=== PATIENT | female | born 1970 | race Caucasian/White ===

== ENCOUNTER → 2020-10-01 13:18 | Outpatient (CLI) | payer OTHER, SELFPAY ==
--- NOTE | ~2020-10-01 | MM_ITS ---
EXAMINATION: MM screening kamila BI w amla HISTORY: Screening TECHNIQUE: Craniocaudal and mediolateral oblique 3-D tomosynthesis images were obtained and synthetic 2-D images were generated. CAD analysis was submitted and interpreted. COMPARISON: Comparison to multiple prior studies sequentially, with oldest reviewed study dated 12/2012. BREAST PARENCHYMAL COMPOSITION: There are scattered areas of fibroglandular density. FINDINGS: Right breast is stable without evidence for malignancy. No significant change to benign-art earing right breast mass in the upper outer quadrant. There are subtle developing asymmetries in the subareolar location of the left breast. IMPRESSION: 1. Developing left breast subareolar densities. 2. Additional mammographic views and possible breast ultrasound are recommended. BI-RADS Category 0: Incomplete: Needs additional imaging evaluation. Reviewed, dictated and finalized at location A. GRADER IMPRESSION: 1. Developing left breast subareolar densities. 2. Additional mammographic views and possible breast ultrasound are recommended . BI-RADS Category 0: Incomplete: Needs additional imaging evaluation.
--- NOTE | ~2020-10-01 | DEXA_ITS ---
Bone Density Report Name: Jumana Campoverde Age: 50 Sex: Female Ethnicity: White Date of : 1970 Indication: postmenopausal; screening for osteoporosis; height loss; asthma or emphysema; Referring Provider: Ok Lujan Study: Bone densitometry was performed. Exam Date: October 01, 2020 Accession number: [id number] Bone Density: Region BMD T-score Z-score Classification AP Spine (L1-L4) 0.961 -0.8 0.1 Normal Femoral Neck (Left) 0.653 -1.8 -0.9 Osteopenia Total Hip (Left) 0.823 -1.0 -0.4 Normal Femoral Neck (Right) 0.710 -1.3 -0.4 Osteopenia Total Hip (Right) 0.831 -0.9 -0.4 Normal Total Hip Mean 0.827 -1.0 -0.4 Normal World Health Organization criteria for BMD impression classify patients as: Normal (T-score at or above -1.0), Osteopenia (T-score between -1.0 and -2.5), or Osteoporosis (T-score at or below -2.5). 10-year Fracture Risk(1): Major Osteoporotic Fracture 5.7% Hip Fracture 0.6% Reported Risk Factors: [place] (), Neck BMD=0.653, BMI=27.4 (1) FRAX(R) Version 3.08. Fracture probability calculated for an untreated patient. Fracture probability may be lower if the patient has received treatment. Clinical Information Provided by Patient: Has the following medical conditions: Asthma or Emphysema Patient maximum height was 66 Menopause Age: 49 Drinks caffeinated beverages Onset of menses at age 13 Number of children 4 Impression: The patient has low bone mass, based on the Left Femoral Neck T-score. The patient has an estimated ten-year risk of hip fracture of 0.6% and an estimated ten-year risk of major fracture of 5.7%, based on the WHO FRAX algorithm. Discussion: BONE DENSITY IS LOW AT ONE OR MORE SKELETAL SITES. This patient's lowest T-score is low at one or more skeletal sites. It meets the World Health Organization's (WHO) criteria for ?low bone mass? (T-score between -1.0 and -2.5). The patient's 10-year risk of fracture as calculated by FRAX is less than the threshold where pharmacological therapy is recommended by the National Osteoporosis Foundation (NOF). However, all treatment decisions require clinical judgment and consideration of individual patient factors, including patient preferences, comorbidities, previous drug use, risk factors not captured in the FRAX model (e.g., frailty, falls, vitamin D deficiency, increased bone turnover, interval significant decline in bone density) and possible under or overestimation of fracture risk by FRAX. The patient should follow a healthful lifestyle (good nutrition with adequate calcium and vitamin D, and appropriate weight-bearing exercise). Follow-Up: Consider repeating this study in 2 to 3 years to reassess this patient's status, or sooner if there is some new clinical indication. Reported by: RON on 10/01/2020 1:45:0
== END ==
PROVIDERS: PCP Family Medicine; Visit Provider Family Medicine
DX: Z12.31 Encounter for screening mammogram for malignant neoplasm of breast (principal); Z78.0 Asymptomatic menopausal state; R92.8 Other abnormal and inconclusive findings on diagnostic imaging of breast; M85.89 Other specified disorders of bone density and structure, multiple sites
CPT/HCPCS: 77063; 77067; 77080

== ENCOUNTER → 2020-10-22 14:14 | Outpatient (CLI) | payer OTHER, SELFPAY ==
--- NOTE | ~2020-10-22 | MMUS_ITS ---
EXAMINATION: MM diagnostic mammo unilat LT, US breast LT complete HISTORY: Developing left breast subareolar densities reported on 10/01/2020 screening mammogram TECHNIQUE: Additional 3-D tomosynthesis images of the left breast were performed and synthetic 2-D im ages were generated. CAD analysis was submitted and interpreted. High resolution complete left breast ultrasound was performed. COMPARISON: 10/18/2020, 05/18/2019, 04/28/2018 bilateral digital screening mammogram examinations FINDINGS: MAMMOGRAPHIC FINDINGS: Mildly nodular appearing fibroglandular stroma is noted. Small mass is not excluded. No malignant calcification, architectural distortion, skin thickening or retraction is evident. ULTRASOUND: 12:00 subareolar area: 3 x 5 mm sonolucency with through transmission, consistent with cyst. 2:00 3 cm from nipple: 2.2 x 3.5 x 4.4 mm sonolucency with through transmission, consistent with cyst 2:00 4 cm from nipple: 2.4 mm sonolucency 3:00 6 cm from nipple: 2 x 3 x 4 mm hypoechoic lesion with tri-*configuration, without internal vascu larity or posterior shadowing; six-month follow-up ultrasound imaging is recommended 4:00 5 cm from nipple: 2.5 x 4.6 mm sonolucency with through transmission posterior enhancement consi stent with simple cyst. 4:00 5 cm from nipple: 2.7 x 4.4 mm hypoechoic lesion with mildly irregular margins; no internal vasc ularity or posterior shadowing. 6 month follow-up ultrasound examination is recommended. 11:00 subareolar area: 2.5 x 4.6 x 7 Prominent subareolar duct is noted. Mm sonolucency with through transmission, consistent with cyst. IMPRESSION: 1. Probably benign findings 2. 6 month follow-up left breast ultrasound examination is recommended. BI-RADS category 3, probably benign findings. Reviewed, dictated and finalized at location A. [facility] [employer] IMPRESSION: 1. Probably benign findings 2. 6 month follow-up left breast ultrasound examination is recommended. BI-RADS category 3, probably benign findings.
== END ==
PROVIDERS: PCP Family Medicine; Visit Provider Family Medicine
DX: N63.42 Unspecified lump in left breast, subareolar (principal); N63.21 Unspecified lump in the left breast, upper outer quadrant; N63.23 Unspecified lump in the left breast, lower outer quadrant
CPT/HCPCS: 76641; 77065

== ENCOUNTER → 2021-04-26 08:36 | Outpatient (CLI) | payer OTHER, SELFPAY ==
--- NOTE | ~2021-04-26 | XR_ITS ---
XR hand RT min 3V 04/26/2021 08:53 INDICATION: Right hand pain PROCEDURE: 3 views right hand COMPARISON: 06/21/2008 FINDINGS: Fracture, dislocation or subluxation is not identified. The soft tissues appear within norm al limits. No foreign bodies are identified. IMPRESSION: 1: NO ACUTE BONE OR JOINT ABNORMALITY IDENTIFIED. Reviewed, dictated and finalized at location A.
== END ==
PROVIDERS: Visit Provider Physician Assistant
DX: S69.90XA Unspecified injury of unspecified wrist, hand and finger(s), initial encounter (principal)
CPT/HCPCS: 73130

== ENCOUNTER 2021-05-24 09:09 | Outpatient (CLI) | payer OTHER, SELFPAY ==
[2021-05-24 09:41] LABS: Basophils Percent Auto 0.7 % (0.2-1.2); Eosinophils Absolute Auto 0.2 K/mm3 (0-0.3); Eosinophils Percent Auto 3.8 % (0-4.4); Hematocrit 44.6 % (37.0-47.0); Hemoglobin 14.7 g/dL (12.0-15.0); Immature Granulocyte Absolute 0.01 K/mm3 (0.00-0.031); Immature Granulocyte Percent A 0.2 % (0-0.5); Lymphocytes Absolute Auto 1.69 K/mm3 (0.9-3.2); Lymphocytes Percent Auto 30.8 % (18.3-44.2); Mean Platelet Volume 11.1 fl (7.4-10.4); Monocytes Absolute Auto 0.5 K/mm3 (0.1-0.6); Monocytes Percent Auto 8.2 % (2.6-8.5); Neutrophils Absolute Auto 3.1 K/mm3 (1.3-6.7); Neutrophils Percent Auto 56.3 % (45.5-73.1); Platelet Count Result 182 k/mm3 (150-375); Red Blood Count 5.07 M/mm3 (4.2-5.4); Red Cell Distribution Width 13.2 % (11.5-14.5); White Blood Count 5.5 K/mm3 (4.5-10.0)
[2021-05-24 09:51] LABS: Alanine Aminotransferase 18 U/L (4-35); Albumin Level 4.8 g/dL (3.5-5.1); Alkaline Phosphatase 75 U/L (38-126); Anion Gap 9 mmol/L (8-16); Aspartate Amino Transferase 26 U/L (14-36); Bilirubin,Total 0.6 mg/dL (0.2-1.3); Blood Urea Nitrogen 16 mg/dL (7-17); Calcium 9.3 mg/dL (8.4-10.2); Carbon Dioxide 30 mmol/L (22-30); Chloride 103 mmol/L (98-107); Cholesterol 191 mg/dL (0-200); Estimated Glomerular Filt Rate > 60; Glucose 93 mg/dL (65-105); HDL Direct 51 mg/dL; Sodium 142 mmol/L (137-145); Triglycerides 103 mg/dL (<150)
[2021-05-24 10:02] LABS: LDL Cholesterol Direct 111 mg/dL
[2021-05-24 11:00] LABS: Vitamin D 25 Hydroxy 41.8 ng/mL
== END 2021-05-24 09:10 | disposition home or self-care (01) ==
PROVIDERS: PCP Family Medicine; Visit Provider Physician Assistant
DX: M85.80 Other specified disorders of bone density and structure, unspecified site (principal); I10 Essential (primary) hypertension; Z79.899 Other long term (current) drug therapy
CPT/HCPCS: 36415; 80053; 80061; 82306; 84443; 85025

== ENCOUNTER → 2021-09-19 14:45 | Outpatient (CLI) | payer OTHER, SELFPAY ==
--- NOTE | ~2021-09-19 | US_ITS ---
US breast LT complete DATE: 09/19/2021 15:08 INDICATION: Follow-up of probably benign sonographic lesions, 10/22/2020 complete left breast ultraso und examination TECHNIQUE: High-resolution ultrasound imaging and color flow imaging of complete left breast, includi ng all 4 quadrants and subareolar area COMPARISON: 10/22/2020 complete left breast ultrasound 10/18/2020 diagnostic left mammogram 10/01/2020 bilateral digital screening mammogram FINDINGS: The following lesions without suspicious shadowing or internal vascularity or noted: 12:00 subareolar: 4.6 x 3.2 x 4.9 mm sonolucency 2:00 3 cm from nipple: 3.4 x 2.4 x 4.3 mm hypoechoic lesion 3:00 6 cm from nipple: 4.5 x 2.9 x 2.8 mm hypoechoic lesion 4:00 5 cm from nipple: 3.2 x 2.7 x 3.7 mm sonolucency 4:00 5 cm from nipple: 1.8 x 2 x 2.8 mm hypoechoic lesion 6:00 4 cm from nipple: 3.6 x 2 x 3.1 mm sonolucency with through transmission posterior enhancement 6:00 4 cm from nipple: 3 x 2.7 x 4 mm sonolucency 11:00 subareolar: 3 x 2.4 x 2.8 mm sonolucency 12:00 subareolar: 2.7 x 4 x 5 mm sonolucency No significant new or developing mass is noted compared to 10/18/2020. IMPRESSION: BI-RADS Category 2: Benign Recommendation: Routine mammographic screening Reviewed, dictated and finalized at Location A. Reviewed, dictated and finalized at location A.
== END ==
PROVIDERS: PCP Family Medicine; Visit Provider Family Medicine
DX: N63.25 Unspecified lump in the left breast, overlapping quadrants (principal); N63.42 Unspecified lump in left breast, subareolar
CPT/HCPCS: 76641

== ENCOUNTER 2022-04-25 08:15 | Outpatient (CLI) | payer OTHER, SELFPAY ==
[2022-04-25 08:48] LABS: Basophils Absolute Auto 0.1 K/mm3 (0.0-0.1); Basophils Percent Auto 0.8 % (0.2-1.2); Eosinophils Absolute Auto 0.2 K/mm3 (0-0.3); Eosinophils Percent Auto 2.8 % (0-4.4); Hematocrit 44.3 % (37.0-47.0); Hemoglobin 14.4 g/dL (12.0-15.0); Immature Granulocyte Absolute 0.01 K/mm3 (0.00-0.031); Immature Granulocyte Percent A 0.2 % (0-0.5); Lymphocytes Percent Auto 36.3 % (18.3-44.2); Mean Corpuscular HGB Conc 32.5 g/dl (32-36); Mean Corpuscular Hemoglobin 29.1 pg (26-34); Mean Corpuscular Volume 89.5 fl (80-100); Mean Platelet Volume 11.2 fl (7.4-10.4); Monocytes Absolute Auto 0.6 K/mm3 (0.1-0.6); Monocytes Percent Auto 10.1 % (2.6-8.5); Neutrophils Percent Auto 49.8 % (45.5-73.1); Platelet Count Result 181 k/mm3 (150-375); Red Blood Count 4.95 M/mm3 (4.2-5.4); Red Cell Distribution Width 13.4 % (11.5-14.5); White Blood Count 6.1 K/mm3 (4.5-10.0)
[2022-04-25 08:58] LABS: Alanine Aminotransferase 25 U/L (6-35); Albumin Level 4.8 g/dL (3.5-5.1); Alkaline Phosphatase 83 U/L (38-126); Anion Gap 3 mmol/L (8-16); Aspartate Amino Transferase 30 U/L (14-36); Bilirubin,Total 0.6 mg/dL (0.2-1.3); Blood Urea Nitrogen 17 mg/dL (7-17); Calcium 9.2 mg/dL (8.4-10.2); Carbon Dioxide 34 mmol/L (22-30); Chloride 103 mmol/L (98-107); Cholesterol 219 mg/dL (0-200); Estimated Glomerular Filt Rate > 60; Glucose 95 mg/dL (65-110); HDL Direct 44 mg/dL; Potassium 3.8 mmol/L (3.4-5.0); Sodium 140 mmol/L (137-145); Triglycerides 151 mg/dL (<150)
[2022-04-25 09:08] LABS: LDL Cholesterol Direct 132 mg/dL
[2022-04-25 09:37] LABS: Free T4 Free Thyroxine 0.96 ng/mL (0.78-2.19); Vitamin D 25 Hydroxy 40.7 ng/mL
== END 2022-04-25 08:16 | disposition home or self-care (01) ==
LOC: ANHLAB 08:17
PROVIDERS: PCP Family Medicine; Visit Provider Family Medicine
DX: I10 Essential (primary) hypertension (principal); G43.909 Migraine, unspecified, not intractable, without status migrainosus; R53.83 Other fatigue; Z79.899 Other long term (current) drug therapy
CPT/HCPCS: 36415; 80053; 80061; 82306; 84439; 84443; 85025

== ENCOUNTER 2023-04-29 08:33 | Outpatient (CLI) | payer OTHER, SELFPAY ==
--- NOTE | 2023-05-10 13:29 | WPDHOMESLEEP ---
Sleep Study - Home Unattended Date of Study: 04/29/23 Ordering Provider: Dl Hernandez MD Interpreting Provider: Joseline Mcdonnell, DO Home Sleep Study Type: Watch PAT Height: 1.68 m Weight: 77.111 kg Body Mass Index: 27.4 Neck Circumference (inches): 13 [place]: 9 Reason for Sleep Study Snoring, unrefreshing sleep Sleep History The patient is a 52-year-old with asthma, hypertension, GERD, migraines, anxiety, low back pain and seasonal allergies had a sleep study ordered for evaluation of sleep apnea. The patient rarely awakens from sleep short of breath. She denies awakening at night with heartburn, belching or cough. She constantly snores loudly enough that others complain. She occasionally has trouble sleeping when she has a cold. She occasionally wakes up gasping for air throughout the night. She occasionally has breathing problems at night observed by herself or others. She occasionally sweats excessively at night. She denies having heart palpitations or irregular heartbeats during the night. She occasionally falls asleep during the day. She rarely falls asleep while driving. She denies sleep paralysis, cataplexy and hypnagogic / hypnopompic hallucinations. She occasionally has trouble at school or work due to sleepiness. She denies afraid of going to sleep. She rarely has nightmares and rarely remembers her dreams. She denies having thoughts racing through her mind. She occasionally feels sad, depressed and anxious. She occasionally has muscular tension. She occasionally notices parts of her body jerk. She frequently kicks during the night. She denies having crawling and aching feelings in her legs. She rarely has leg pain during the night. She denies grinding her teeth during sleep and denies awakening with morning jaw pain. She is occasionally bothered by pain during the day but never awakened by pain during the night. She frequently wakes up feeling stiff in the morning. She frequently wakes up with sore or achy muscles. She frequently wakes up with pain in the neck, spine or other joints. He goes to bed between 10-11 p.m. on both weekdays and weekends. She is able to fall asleep within 15 minutes. She wakes up 1-2 times throughout the night to urinate and was able to fall back asleep in under 5 minutes. She wakes up at 6:30 a.m. on weekdays and between 7:30-8 a.m. on the weekends. She typically gets 7 hours of sleep per night. She will stay in bed for 5 minutes after waking up in the morning. She currently lives with her and 2 children. She does not consume any caffeinated beverages within 2 hours of bedtime. She does not engage in physical exercise before bedtime. She will read before falling asleep. She denies watching television before falling asleep. She denies taking naps in the afternoon or the evening. She consumes 1 caffeinated beverage per day. She denies tobacco, alcohol and recreational drug use. [facility] Surgical History Surgical History History of removal of ovarian cyst Family History Family History Father Family history of thyroid disease, Onset Age: 66 Mother Depression, Onset Age: 64 Family history of seizure disorder Grandparent Hypertension Family history of elevated blood lipids Family history of cardiovascular disease Cerebrovascular accident Family history of malignant neoplasm Social History Social History Smoking status: Never smoker Alcohol intake: never Lack of Transportation: No Lack of Food: Never True Current Housing: I Have Housing Concerned About Future Housing: No Difficulty Paying Gas/Electric Bills: No Difficulty Paying for Meds: No Currently Unemployed: No Education: Master's Degree or Higher Difficulty w/ Childcare or Family Care: No
[2023-05-10 13:45] VITALS: BMI 27.4
== END 2023-05-10 12:22 | disposition home or self-care (01) ==
LOC: ANHCSM 08:34
PROVIDERS: PCP Family Medicine; Visit Provider Family Medicine
DX: G47.9 Sleep disorder, unspecified (principal)
CPT/HCPCS: 95800

== ENCOUNTER 2023-05-14 08:31 | Outpatient (CLI) | payer OTHER, SELFPAY ==
[2023-05-14 09:01] LABS: Basophils Absolute Auto 0.1 K/mm3 (0.0-0.1); Basophils Percent Auto 0.9 % (0.2-1.2); Eosinophils Absolute Auto 0.3 K/mm3 (0-0.3); Eosinophils Percent Auto 3.8 % (0-4.4); Hematocrit 42.2 % (37.0-47.0); Hemoglobin 13.8 g/dL (12.0-15.0); Immature Granulocyte Absolute 0.02 K/mm3 (0.00-0.031); Immature Granulocyte Percent A 0.3 % (0-0.5); Lymphocytes Absolute Auto 2.26 K/mm3 (0.9-3.2); Lymphocytes Percent Auto 34.7 % (18.3-44.2); Mean Corpuscular HGB Conc 32.7 g/dl (32-36); Mean Corpuscular Hemoglobin 29.1 pg (26-34); Mean Platelet Volume 10.5 fl (7.4-10.4); Monocytes Absolute Auto 0.6 K/mm3 (0.1-0.6); Monocytes Percent Auto 9.4 % (2.6-8.5); Neutrophils Absolute Auto 3.3 K/mm3 (1.3-6.7); Neutrophils Percent Auto 50.9 % (45.5-73.1); Platelet Count Result 195 k/mm3 (150-375); Red Blood Count 4.74 M/mm3 (4.2-5.4); Red Cell Distribution Width 13.5 % (11.5-14.5); White Blood Count 6.5 K/mm3 (4.5-10.0)
[2023-05-14 09:12] LABS: Alanine Aminotransferase 27 U/L (6-35); Albumin Level 4.4 g/dL (3.5-5.1); Alkaline Phosphatase 76 U/L (38-126); Anion Gap 7 mmol/L (8-16); Aspartate Amino Transferase 27 U/L (14-36); Bilirubin,Total 0.7 mg/dL (0.2-1.3); Blood Urea Nitrogen 20 mg/dL (7-17); Carbon Dioxide 32 mmol/L (22-30); Chloride 101 mmol/L (98-107); Cholesterol 197 mg/dL (0-200); Estimated Glomerular Filt Rate > 60; Glucose 94 mg/dL (65-110); HDL Direct 49 mg/dL; Magnesium 2.1 mg/dL (1.6-2.3); Sodium 140 mmol/L (137-145); Triglycerides 84 mg/dL (<150)
[2023-05-14 09:23] LABS: LDL Cholesterol Direct 126 mg/dL
== END 2023-05-14 08:32 | disposition home or self-care (01) ==
LOC: ANHLAB 08:33
PROVIDERS: PCP Family Medicine; Visit Provider Physician Assistant
DX: G47.9 Sleep disorder, unspecified (principal); Z79.899 Other long term (current) drug therapy; M85.80 Other specified disorders of bone density and structure, unspecified site; I10 Essential (primary) hypertension
CPT/HCPCS: 36415; 80053; 80061; 82728; 83735; 84443; 85025

== ENCOUNTER 2023-05-31 07:51 | Outpatient (CLI) | payer OTHER, SELFPAY | END 2023-05-31 07:52 | disposition home or self-care (01) | LOC: ANHAUDIO 07:51 | PROVIDERS: PCP Family Medicine; Visit Provider Family Medicine | DX: H90.3 Sensorineural hearing loss, bilateral (principal) | CPT/HCPCS: 92557; 92567 ==

== ENCOUNTER 2023-12-31 00:08 | Day surgery (SDC) | payer OTHER, SELFPAY ==
[2023-12-09 13:29] VITALS: BMI 29.1
--- NOTE | 2023-12-29 11:48 | SUR.PREOP ---
Patient called regarding upcoming procedure. message left on pt's voicemail regarding appointment times.
--- NOTE | 2023-12-30 14:43 | PM.HPGS ---
History of Present Illness History of Present Illness Consent: Risks, benefits, and alternatives have been discussed and questions answered. Patient agrees to proceed with procedure. Chief complaint: neoplasm screening Narrative: Jumana Campoverde is a 53 year old female Who was referred for colon cancer screening. Review of Systems Review of Systems: All systems reviewed & are unremarkable except as noted in HPI and below PMFSH Surgical History Surgical History History of removal of ovarian cyst Family History Family History Father Family history of thyroid disease, Onset Age: 66 Mother Depression, Onset Age: 64 Family history of seizure disorder Grandparent Hypertension Family history of elevated blood lipids Family history of cardiovascular disease Cerebrovascular accident Family history of malignant neoplasm Social History Social History Smoking status: Never smoker Alcohol intake: current Alcohol use details: rare Substance use: never Substance use type: does not use Lack of Transportation: No Lack of Food: Never True Current Housing: I Have Housing Concerned About Future Housing: No Difficulty Paying Gas/Electric Bills: No Difficulty Paying for Meds: No Currently Unemployed: No Education: Master's Degree or Higher Difficulty w/ Childcare or Family Care: No Living arrangements: with family Spiritual care concerns: No Meds Home Medications and Allergies Home Medications Medication Instructions Recorded Confirmed Type calcium polycarbophil 625 mg 1,250 mg PO DAILY 04/30/20 12/31/23 History tablet (FiberCon) fluticasone propionate 50 1 spray intranasal BID 04/30/20 12/31/23 History mcg/actuation nasal spray,suspension (Allergy Relief (fluticasone)) loratadine 10 mg tablet (Claritin) 10 mg PO DAILY 04/30/20 12/31/23 History cholecalciferol (vitamin D3) 50 50 mcg PO DAILY 10/15/20 12/31/23 History mcg (2,000 unit) capsule montelukast 10 mg tablet 10 mg PO DAILY #90 tabs 04/12/23 12/31/23 Rx (Singulair) buspirone 7.5 mg tablet 7.5 mg PO DAILY PRN stress #90 tabs 06/11/23 12/31/23 Rx lisinopril 20 mg tablet See Rx Instructions .Route 07/29/23 12/31/23 Rx .COMPLEX #90 tabs eletriptan 20 mg tablet See Rx Instructions PO .COMPLEX 09/10/23 12/31/23 Rx #27 tabs hydrochlorothiazide 12.5 mg tablet 6.25 mg PO DAILY #90 tabs 10/04/23 12/31/23 Rx gabapentin 100 mg capsule 100 mg PO QHS #90 caps 10/15/23 12/31/23 Rx fluticasone propionate 230 2 puff inhalation Q12H #12 grams 11/15/23 12/31/23 Rx mcg-salmeterol 21 mcg/actuation HFA inhaler (Advair HFA) celecoxib 200 mg capsule (Celebrex) 200 mg PO BID #180 caps 11/24/23 12/31/23 Rx omeprazole 40 mg capsule,delayed 40 mg PO DAILY #90 caps 11/24/23 12/31/23 Rx release Allergies Allergy/AdvReac Type Severity Reaction Status Date / Time animal dander Allergy Unknown Sneezing Verified 12/31/23 09:16 Sulfa (Sulfonamide Allergy Unknown Swelling Verified 12/31/23 09:16 Antibiotics) sulfamethizole Allergy Unknown angioedema Verified 12/31/23 09:16 Exam Resp: Auscultation: clear to auscultation bilaterally Cardio: Rate: regular rate Rhythm: regular rhythm GI: GI Palp: Yes Soft to palpation and No Tenderness to palpation present (GI) Assessment and Plan Assessment and plan (1) Colon cancer screening: Code(s): Z12.11 - Encounter for screening for malignant neoplasm of colon Status: Acute Assessment and Plan: Colonoscopy with possible biopsy or polypectomy or cautery or injection of substances.
[2023-12-31 09:18] VITALS: BP 129/95; PULSE 78; RESP 20; TEMP 36.2; O2SAT 100
[2023-12-31] MEDS: LACTATED RINGERS 1,000 ML 150 ML IV CONT (09:29)
--- NOTE | 2023-12-31 10:17 | WPDANESEPPF ---
Anes - Initial Pre Proc Eval Procedure: Operation Date: 12/31/23 10:30 Proposed Procedures p Screening Colonoscopy - Juliano Emery MD Date/Time: 12/31/23 10:17 Surgeon: Juliano Emery MD Pre Op Diagnosis: neoplasm screening Patient Data Age: 53 Gender: F Height: 1.65 m Weight: 77.1 kg Last Vital Signs Temp 97.2 F L 12/31/23 09:18 Pulse 78 12/31/23 09:18 Resp 20 12/31/23 09:18 BP 129/95 H 12/31/23 09:18 Pulse Ox 100 12/31/23 09:18 O2 Del Method Room Air 12/31/23 09:18 Allergies Allergy/AdvReac Type Severity Reaction Status Date / Time animal dander Allergy Unknown Sneezing Verified 12/31/23 09:16 Sulfa (Sulfonamide Allergy Unknown Swelling Verified 12/31/23 09:16 Antibiotics) sulfamethizole Allergy Unknown angioedema Verified 12/31/23 09:16 Home Medications Medication Instructions Recorded Confirmed Type calcium polycarbophil 625 mg 1,250 mg PO DAILY 04/30/20 12/31/23 History tablet (FiberCon) fluticasone propionate 50 1 spray intranasal BID 04/30/20 12/31/23 History mcg/actuation nasal spray,suspension (Allergy Relief (fluticasone)) loratadine 10 mg tablet (Claritin) 10 mg PO DAILY 04/30/20 12/31/23 History cholecalciferol (vitamin D3) 50 50 mcg PO DAILY 10/15/20 12/31/23 History mcg (2,000 unit) capsule montelukast 10 mg tablet 10 mg PO DAILY #90 tabs 04/12/23 12/31/23 Rx (Singulair) buspirone 7.5 mg tablet 7.5 mg PO DAILY PRN stress #90 tabs 06/11/23 12/31/23 Rx lisinopril 20 mg tablet See Rx Instructions .Route 07/29/23 12/31/23 Rx .COMPLEX #90 tabs eletriptan 20 mg tablet See Rx Instructions PO .COMPLEX 09/10/23 12/31/23 Rx #27 tabs hydrochlorothiazide 12.5 mg tablet 6.25 mg PO DAILY #90 tabs 10/04/23 12/31/23 Rx gabapentin 100 mg capsule 100 mg PO QHS #90 caps 10/15/23 12/31/23 Rx fluticasone propionate 230 2 puff inhalation Q12H #12 grams 11/15/23 12/31/23 Rx mcg-salmeterol 21 mcg/actuation HFA inhaler (Advair HFA) celecoxib 200 mg capsule (Celebrex) 200 mg PO BID #180 caps 11/24/23 12/31/23 Rx omeprazole 40 mg capsule,delayed 40 mg PO DAILY #90 caps 11/24/23 12/31/23 Rx release Patient hx anesthesia problems: none Family hx anesthesia problems: none Results Review: All pre-operative results and documents have been reviewed as part of the pre-operative evaluation. [facility] Surgical History Surgical History History of removal of ovarian cyst Family History Family History Father Family history of thyroid disease, Onset Age: 66 Mother Depression, Onset Age: 64 Family history of seizure disorder Grandparent Hypertension Family history of elevated blood lipids Family history of cardiovascular disease Cerebrovascular accident Family history of malignant neoplasm Social History Social History Smoking status: Never smoker Alcohol intake: current Alcohol use details: rare Substance use: never Substance use type: does not use Lack of Transportation: No Lack of Food: Never True Current Housing: I Have Housing Concerned About Future Housing: No Difficulty Paying Gas/Electric Bills: No Difficulty Paying for Meds: No Currently Unemployed: No Education: Master's Degree or Higher Difficulty w/ Childcare or Family Care: No Living arrangements: with family Spiritual care concerns: No Anes - Eval Final PreProcedure Day of Procedure 12/31/23 10:17 Patient weight: normal Heart: regular rate and rhythm Lungs: clear to auscultation Airway: Mallampati scale class II Neurological: alert and oriented Last oral intake: >/= 8 hours ASA classification: II Emergent: no Anesthetic plan: proceed Anesthesia type and monitoring: general GIVS and standard monitoring Results Review: All pre-operative results and docum
[2023-12-31 10:48] VITALS: BP 125/84; PULSE 76; RESP 18; O2SAT 100
[2023-12-31 10:58] VITALS: BP 133/81; PULSE 68; RESP 20; O2SAT 100
[2023-12-31 11:08] VITALS: BP 129/97; PULSE 70; RESP 20; O2SAT 100
== END 2023-12-31 11:16 | disposition home or self-care (01) ==
PROVIDERS: PCP Family Medicine; Visit Provider Internal Medicine Gastroenterology
PROC: 0DJD8ZZ Inspection of Lower Intestinal Tract, Via Natural or Artificial Opening Endoscopic (ICD-10-PCS; CPT 45378; principal; 2023-12-31 10:30)
DX: Z12.11 Encounter for screening for malignant neoplasm of colon (principal); Z79.51 Long term (current) use of inhaled steroids
CPT/HCPCS: 45378; J2704; J7120

== ENCOUNTER 2024-08-01 12:48 | Outpatient (CLI) | payer OTHER, SELFPAY ==
--- NOTE | 2024-08-01 14:45 | NEURO_ITS ---
Impression: # Complains of numbness of right hand. # Right ulnar neuropathy across the elbow. # No Carpal Tunnel Syndrome. # Needle/EMG exam mildly neurogenic in right ADM. Nerve Conduction Studies Anti Sensory Summary Table Stim Site NR Peak (ms) P-T Amp (?V) Site1 Site2 Delta-P (ms) Dist (cm) Kameron (m/s) Right Median Anti Sensory (2-3nd Digit) Wrist 3.0 53.0 Wrist 2-3nd Digit 3.0 14.0 47 Wrist 3.2 82.8 Wrist 2-3nd Digit 3.0 14.0 47 Right Radial Anti Sensory (Base 1st Digit) Wrist 2.6 28.1 Wrist Base 1st Digit 2.6 0.0 Right Ulnar Anti Sensory (5th Digit) Wrist 2.9 92.1 Wrist 5th Digit 2.9 14.0 48 Motor Summary Table Stim Site NR Onset (ms) O-P Amp (mV) Site1 Site2 Delta-0 (ms) Dist (cm) K[place]on (m/s) Right Median Motor (Abd Poll Brev) Wrist 3.8 7.6 Elbow Wrist 4.8 28.0 58 Elbow 8.6 5.5 Right Ulnar Motor (Abd Dig Minimi) Wrist 2.6 7.7 A Elbow Wrist 5.7 29.0 51 A Elbow 8.3 7.5 B Elbow Wrist 3.1 17.0 55 B Elbow 5.7 7.3 F Wave Studies NR F-Lat (ms) L-R F-Lat (ms) Right Median (Mrkrs) (Abd Poll Brev) 27.72 Right Ulnar (Mrkrs) (Abd Dig Min) 27.58 EMG Side Muscle Nerve Root Ins Act Fibs Amp Dur Recrt Comment Right 1stDorInt Ulnar C8-T1 Nml Nml Nml Nml Nml Right Ext Indicis Radial (Post Int) C7-8 Nml Nml Nml Nml Nml Right Ext Digitorum Radial (Post Int) C7-8 Nml Nml Nml Nml Nml Right BrachioRad Radial C5-6 Nml Nml Nml Nml Nml Right PronatorTeres Median C6-7 Nml Nml Nml Nml Nml Right Abd Poll Brev Median C8-T1 Nml Nml Nml Nml Nml Right ABD Dig Min Ulnar C8-T1 Nml Nml Incr >12ms Nml MTDD
== END 2024-08-01 12:49 | disposition home or self-care (01) ==
LOC: ANHNEURO 12:50
PROVIDERS: PCP Family Medicine; Visit Provider Plastic Surgery
DX: G56.21 Lesion of ulnar nerve, right upper limb (principal)
CPT/HCPCS: 95886; 95909

== ENCOUNTER 2024-08-29 08:16 | Outpatient (CLI) | payer OTHER, SELFPAY ==
[2024-08-29 08:51] LABS: Anion Gap 9 mmol/L (4-12); Blood Urea Nitrogen 16 mg/dL (7-17); Calcium 9.3 mg/dL (8.4-10.2); Carbon Dioxide 31 mmol/L (22-30); Chloride 101 mmol/L (98-107); Estimated Glomerular Filt Rate > 60; Glucose 102 mg/dL (65-110); Sodium 141 mmol/L (137-145)
== END 2024-08-29 08:17 | disposition home or self-care (01) ==
PROVIDERS: PCP Family Medicine; Visit Provider Anesthesiology
DX: Z01.818 Encounter for other preprocedural examination (principal); Z79.899 Other long term (current) drug therapy
CPT/HCPCS: 36415; 80048

== ENCOUNTER 2024-08-31 02:12 | Day surgery (SDC) | payer OTHER, SELFPAY ==
[2024-08-28 14:04] VITALS: BMI 27.8
--- NOTE | 2024-08-28 14:19 | PC.NURSE ---
Report to the Outpatient Waiting Room, entrance under the green pavilion located off [facility], at time _0600_ on date _[id number]_. Planned Procedure Time: _0730_.? Time changes happen often and if your time is changed the preop area will call you the afternoon before. - You and your visitor will be asked to self-screen and do not enter if you have any COVID symptoms. Please call surgeon if you need to reschedule. - A mask is optional within the hospital at this time. - No food or drink from midnight until time of surgery and no smoking Take only the following medications with a SIP of water on the morning of surgery: ____Advair, Flonase and if needed Buspirone. DO NOT STOP ANY OF YOUR OTHER PRESCRIPTION MEDICATIONS PRIOR TO SURGERY EXCEPT THE FOLLOWING Medications to discontinue per physician ____None Please no make-up, nail stateless, hairspray, perfume, deodorant, or body powder the day of surgery.? No jewelry (including any body piercings) or valuables the day of surgery, leave them at home.? Please take a shower or bath the night before, or the morning of, surgery with an antibacterial soap.? Wear comfortable, loose fitting clothing.? - Jewelry must be removed prior to entering the operating room.? Rings and piercings that are not removed may be cut off. - The hospital will not accept responsibility for valuables.? - Please leave all valuables, including medications, at home the day of surgery. If you are going home after surgery, a licensed tractor driver must drive you home.? - NO public transportation without another adult if you receive anesthesia. - We recommend that an adult stay with you for 24 hours following discharge. - We also recommend that you do not drive, make important decision, drink alcoholic beverages, or take any drugs that were not prescribed by your health care provider for at least 24 hours after your discharge time. Follow any additional instructions given to you from your surgeon. Telephone instructions given to ___Jumana___and asked if any additional questions and then verbalized understanding. Patient advised to call surgeon office or pre surgery nurse liaison [phone] if any additional questions.
[2024-08-31 06:23] VITALS: BP 126/90; PULSE 83; TEMP 36.2; O2SAT 100; BMI 27.8
[2024-08-31] MEDS: LACTATED RINGERS 1,000 ML 30 ML IV CONT (06:28)
--- NOTE | 2024-08-31 06:45 | WPDANESEPPF ---
Anes - Initial Pre Proc Eval Procedure: Operation Date: 08/31/24 07:30 Proposed Procedures p Right Cubital Tunnel Release - Nela Herrera MD Date/Time: 08/31/24 06:45 Surgeon: Nela Herrera MD Pre Op Diagnosis: Lesion of right ulnar nerve Patient Data Age: 53 Gender: F Height: 1.68 m Weight: 78.2 kg Last Vital Signs Temp 97.1 F L 08/31/24 06:23 Pulse 83 08/31/24 06:23 BP 126/90 08/31/24 06:23 Pulse Ox 100 08/31/24 06:23 O2 Del Method Room Air 08/31/24 06:23 Allergies Allergy/AdvReac Type Severity Reaction Status Date / Time animal dander Allergy Unknown Sneezing Verified 08/28/24 14:02 Sulfa (Sulfonamide Allergy Unknown Swelling Verified 08/28/24 14:02 Antibiotics) sulfamethizole Allergy Unknown angioedema Verified 08/28/24 14:02 Home Medications Medication Instructions Recorded Confirmed Type calcium polycarbophil 625 mg 1,250 mg PO DAILY 04/30/20 08/28/24 History tablet (FiberCon) fluticasone propionate 50 1 spray intranasal BID 04/30/20 08/28/24 History mcg/actuation nasal spray,suspension (Allergy Relief (fluticasone)) loratadine 10 mg tablet (Claritin) 10 mg PO DAILY 04/30/20 08/28/24 History cholecalciferol (vitamin D3) 50 50 mcg PO DAILY 10/15/20 08/28/24 History mcg (2,000 unit) capsule montelukast 10 mg tablet 10 mg PO DAILY #90 tabs 04/12/23 08/28/24 Rx (Singulair) buspirone 7.5 mg tablet 7.5 mg PO DAILY PRN stress #90 tabs 06/11/23 08/28/24 Rx eletriptan 20 mg tablet See Rx Instructions PO .COMPLEX 09/10/23 08/28/24 Rx #27 tabs hydrochlorothiazide 12.5 mg tablet 6.25 mg PO DAILY #90 tabs 10/04/23 08/28/24 Rx albuterol sulfate 2.5 mg/0.5 mL 2.5 mg (0.5 mL) inhalation Q20M 02/23/24 08/28/24 Rx solution for nebulization PRN bronchospasm #30 ea albuterol sulfate 90 mcg/actuation 2 puff inhalation Q4H PRN 02/23/24 08/28/24 Rx aerosol inhaler (ProAir HFA) bronchospasm #8.5 grams gabapentin 100 mg capsule 100 mg PO QHS #90 caps 04/03/24 08/28/24 Rx omeprazole 40 mg capsule,delayed 40 mg PO DAILY #90 caps 04/03/24 08/28/24 Rx release fluticasone propionate 230 2 puff inhalation Q12H #12 grams 06/02/24 08/28/24 Rx mcg-salmeterol 21 mcg/actuation HFA inhaler (Advair HFA) celecoxib 200 mg capsule (Celebrex) 200 mg PO BID #180 caps 07/03/24 08/28/24 Rx lisinopril 20 mg tablet See Rx Instructions .Route 08/11/24 08/28/24 Rx .COMPLEX #90 tabs nortriptyline 10 mg capsule 10 mg PO QHS #90 caps 08/23/24 08/28/24 Rx Patient hx anesthesia problems: other (Urinary retention after GA in the past. ) Family hx anesthesia problems: none Results Review: All pre-operative results and documents have been reviewed as part of the pre-operative evaluation. [facility] Surgical History Surgical History History of removal of ovarian cyst Family History Family History Father Family history of thyroid disease, Onset Age: 66 Mother Depression, Onset Age: 64 Family history of seizure disorder Grandparent Hypertension Family history of elevated blood lipids Family history of cardiovascular disease Cerebrovascular accident Family history of malignant neoplasm Social History Social History Smoking status: Never smoker Alcohol intake: current Alcohol use details: rare Substance use: never Substance use type: does not use Lack of Transportation: No Lack of Food: Never True Current Housing: I Have Housing Concerned About Future Housing: No Difficulty Paying Gas/Electric Bills: No Difficulty Paying for Meds: No Currently Unemployed: No Education: Master's Degree or Higher Difficulty w/ Childcare or Family Care: No Living arrangements: with family Spiritual care concerns: No Anes - Eval Final PreProced
--- NOTE | 2024-08-31 07:00 | P.OP_ITS ---
Procedure Note - Detailed Date of Procedure 08/31/24 Pre-op Diagnosis right CuTS Post-op Diagnosis Same Procedure Performed right CuTR Surgeon Nela Herrera MD [facility] Anesthesia MAC Description of Procedure INFORMED CONSENT:The patient was seen and examined and marked in the pre-op area.? The patient signed the consent form. PROCEDURE IN DETAIL: The patient taken back to OR on the stretcher in supine position. Time out performed with anesthesia, surgeon and staff agreeing on patient's name site and surgery to be performed SCDs were placed on the lower extremities and inflated A tourniquet was placed on {right} upper extremity and antibiotics given IV After anesthesia administered sedation I injected {8}cc 1%lido with epi and 0.5% marcaine plain at the operative site The?{right upper extremity}?was prepped and draped in sterile fashion the??{right upper extremity} was??exsanguinated with Esmarch bandage and tourniquet inflated to 250mmHg I next proceeded with making a longitudinal incision between two heads for flexor carpi ulnaris at end of {right} cubital tunnel with 15 blade scalpel.? Littler scissors were used to spread down to FCU fascia.? An incision was made in FCU fascia and ulnar nerve identified exiting cubital tunnel.? I proceeded with complete retrograde release of the cubital tunnel including 7cm proximal for the intermuscular septum.? The nerve appeared healthy with visible vaso nervorum.? There was no subluxation on full elbow range of motion. ? I irrigated with normal saline and closure with 4-0 monocryl for dermis and subcuticular. The incision was covered with Dermabond then 4x4s, juan diego, and a posterior elbow splint for patient safety, security and comfort and secured with daphney bandages after the tourniquet was let down noting the hand was warm and well perfused.? Patient awaken from anesthesia and transferred to recovery in stable condition Complications - none EBL- 1cc Disposition - home in stable conditions [facility] was essential for positioinng, retraction, closure and dressing placement [facility] Billing Surgery - Charge Forward: Surgery Billing ([id number] for steffi)
--- NOTE | 2024-08-31 07:00 | PM.HPGS ---
History of Present Illness History of Present Illness Chief complaint: Lesion of right ulnar nerve Narrative: Patient seen and examined in pre-operative holding area. No interval change in medical history or symptoms. Patient recalls previous discussion of benefits and alternatives to procedure. Continues to desire to proceed with right cubital tunnel release . Reviewed procedure, post-op expectations and risks including but not limited to bleeding, infection, injury to tendon/nerve/vessel, decreased hand function, stiffness, RSD, no change or worsening of symptoms. I discussed the possible use of assistants and their participation in the case. Patient stated understanding and signed the consent form wishing to proceed. Review of Systems Review of Systems: All systems reviewed & are unremarkable except as noted in HPI and below PMFSH Surgical History Surgical History History of removal of ovarian cyst Family History Family History Father Family history of thyroid disease, Onset Age: 66 Mother Depression, Onset Age: 64 Family history of seizure disorder Grandparent Hypertension Family history of elevated blood lipids Family history of cardiovascular disease Cerebrovascular accident Family history of malignant neoplasm Social History Social History Smoking status: Never smoker Alcohol intake: current Alcohol use details: rare Substance use: never Substance use type: does not use Lack of Transportation: No Lack of Food: Never True Current Housing: I Have Housing Concerned About Future Housing: No Difficulty Paying Gas/Electric Bills: No Difficulty Paying for Meds: No Currently Unemployed: No Education: Master's Degree or Higher Difficulty w/ Childcare or Family Care: No Living arrangements: with family Spiritual care concerns: No Meds Home Medications and Allergies Home Medications Medication Instructions Recorded Confirmed Type calcium polycarbophil 625 mg 1,250 mg PO DAILY 04/30/20 08/28/24 History tablet (FiberCon) fluticasone propionate 50 1 spray intranasal BID 04/30/20 08/28/24 History mcg/actuation nasal spray,suspension (Allergy Relief (fluticasone)) loratadine 10 mg tablet (Claritin) 10 mg PO DAILY 04/30/20 08/28/24 History cholecalciferol (vitamin D3) 50 50 mcg PO DAILY 10/15/20 08/28/24 History mcg (2,000 unit) capsule montelukast 10 mg tablet 10 mg PO DAILY #90 tabs 04/12/23 08/28/24 Rx (Singulair) buspirone 7.5 mg tablet 7.5 mg PO DAILY PRN stress #90 tabs 06/11/23 08/28/24 Rx eletriptan 20 mg tablet See Rx Instructions PO .COMPLEX 09/10/23 08/28/24 Rx #27 tabs hydrochlorothiazide 12.5 mg tablet 6.25 mg PO DAILY #90 tabs 10/04/23 08/28/24 Rx albuterol sulfate 2.5 mg/0.5 mL 2.5 mg (0.5 mL) inhalation Q20M 02/23/24 08/28/24 Rx solution for nebulization PRN bronchospasm #30 ea albuterol sulfate 90 mcg/actuation 2 puff inhalation Q4H PRN 02/23/24 08/28/24 Rx aerosol inhaler (ProAir HFA) bronchospasm #8.5 grams gabapentin 100 mg capsule 100 mg PO QHS #90 caps 04/03/24 08/28/24 Rx omeprazole 40 mg capsule,delayed 40 mg PO DAILY #90 caps 04/03/24 08/28/24 Rx release fluticasone propionate 230 2 puff inhalation Q12H #12 grams 06/02/24 08/28/24 Rx mcg-salmeterol 21 mcg/actuation HFA inhaler (Advair HFA) celecoxib 200 mg capsule (Celebrex) 200 mg PO BID #180 caps 07/03/24 08/28/24 Rx lisinopril 20 mg tablet See Rx Instructions .Route 08/11/24 08/28/24 Rx .COMPLEX #90 tabs nortriptyline 10 mg capsule 10 mg PO QHS #90 caps 08/23/24 08/28/24 Rx Allergies Allergy/AdvReac Type Severity Reaction Status Date / Time animal dander Allergy Unknown Sneezing Verified 08/28/24 14:02 Sulfa (Sulfonamide Allergy Unknown Swelling Verified 08/28/24 14
[2024-08-31] MEDS: ceFAZolin 2 GM/D5W 50 ML 2 GM/50 ML BAG IVPB (07:38)
[2024-08-31] MEDS: LIDO 1%/EPINEPHRINE 1:100,000 20 ML VIAL 8 ML INFILTRATE (07:45)
[2024-08-31 08:02] VITALS: BP 130/95; PULSE 84; RESP 16; O2SAT 99
[2024-08-31 08:31] VITALS: BP 133/95; PULSE 76; RESP 16
== END 2024-08-31 08:44 | disposition home or self-care (01) ==
PROVIDERS: PCP Family Medicine; Visit Provider Plastic Surgery
PROC: (CPT 64718; principal; 2024-08-31 07:30)
DX: G56.21 Lesion of ulnar nerve, right upper limb (principal); Z79.51 Long term (current) use of inhaled steroids
CPT/HCPCS: 64718; 36415; 80048; J0690; J2004; J2704; J3010; J7120

== ENCOUNTER 2024-11-10 14:34 | Outpatient (CLI) | payer OTHER, SELFPAY ==
--- NOTE | 2024-11-12 17:42 | P.PCNPFT_ITS ---
PFT Procedure Performed PFT Procedure Performed Spirometry with Pre/Post Bronchodilator Plethysmography (Lung Vol) Diffusing Cap (DLCO) Flow Vol Loop PFT Interpretation DOS: 11/10/2024 REQUESTING: Dl Hernandez MD REASON FOR TESTING: Dyspnea PULMONARY FUNCTION TESTS Results are reliable and reproducible. Repeatability of spirometry FEV1 maneuver pre and post bronchodilator is Grade A. Spirometry: The pre-bronchodilator FEV1 is 2.16 L, 77%, normal. The pre- bronchodilator FVC is 2.93 L, 83%, normal. The FEV1/FVC ratio is 74%, normal. After bronchodilator, the FEV1 is 2.11 L, 76%, -2%. The FVC is 2.87 L, 81%, -2%. The FEV1/FVC ratio is 74%. Lung volumes: The total lung capacity is 5.17 L, 96%, normal. The residual volume is 2.24 L, 111%, normal. The RV/TLC is 43%. Airway resistance is normal. Diffusion: DLCO is 16, 70%, mildly reduced. The DLCO/VA is 4.41, 100%, normal. Flow volume loop: The flow volume loop is normal. IMPRESSION: This study shows normal spirometry without response to bronchodilator, normal lung volumes and normal diffusion. Lack of response to bronchodilator should not preclude use if clinically indicated. There are no prior studies to compare. Lelo Esparza MD
--- OUTSIDE RECORDS SUMMARY | 2024-11-13 21:53 | XMS_ITS | Encounter Summary ---
Author Organization [facility] Address [address] [place] [address] Care Team Providers Care Audit Analyst Name Role Phone Ok Lujan MD Primary Care Provider [phone] Reason for Referral * Outpatient Services (Routine) - Closed Specialty Diagnoses / Procedures Referred By Contac t Referred To Contact Diagnoses Breast lump Procedures MAMMO BREAST US RT Bethany Casey MD [address] [place] [address] Referral ID Status Reason Start Date Expiration Date Visits Re quested Visits Authorized [id number] Closed 11/13/2013 12/14/2014 1 1 MERCERIZER OPERATOR HELPER * Outpatient Services (Routine) - Closed Specialty Diagnoses / Procedures Referred By Contac t Referred To Contact Diagnoses Breast lump Procedures MAMMO BREAST US ASPIRATION RIGHT Bethany Casey MD [address] [place] [address] Referral ID Status Reason Start Date Expiration Date Visits Re quested Visits Authorized [id number] Closed 11/13/2013 12/14/2014 1 1 MERCERIZER OPERATOR HELPER Reason for Visit * Reason Comments Breast Mass right breast Encounter Details Date Type Department Care Team (Late st Contact Info) Description 11/13/2013 2:15 PM YARN MERCERIZER OPERATOR HELPER Office Visit [facility] [place] [address] [place] [id number] Bethany Casey MD [address] [place] [facility] [place] [address] Breast lump (Primary Dx) Social History Tobacco Use Types Packs/Day Years Used Date Smoking Tobacco: Never Smokeless Tobacco: Never Alcohol Use Standard Drinks/Week Comments Yes 0 (1 standard drink = 0.6 oz pur e alcohol) rarely Sex and Gender Information Value Date Recorded Sex Assigned at Not on file Gender Identity Not on file Sexual Orientation Not on file documented as of this encounter Last Filed Vital Signs Vital Sign Reading Time Taken Comments Blood Pressure 124/90 11/13/2013 2:23 PM YARN MERCERIZER OPERATOR HELPER Pulse 74 11/13/2013 2:23 PM YARN MERCERIZER OPERATOR HELPER Temperature - - Respiratory Rate - - Oxygen Saturation - - Inhaled Oxygen Concentration - - Weight 75.8 kg (167 lb) 11/13/2013 2:23 PM YARN MERCERIZER OPERATOR HELPER Height 167.6 cm (5' 6 ) 11/13/2013 2:23 PM YARN MERCERIZER OPERATOR HELPER Body Mass Index 26.95 11/13/2013 2:23 PM YARN MERCERIZER OPERATOR HELPER documented in this encounter Progress Notes * Bethany Casey MD - 11/13/2013 4:16 PM CST PATIENT: Jumana Campoverde : 1970 DATE: 11/13/2013 Jumana Campoverde is a 43 y.o. female. She is referred by Dr Rodriguez because of a lump that she noticed the upper outer right breast about 3 months ago. She has previously been told that she had cysts buthas never undergone cyst aspiration. She denies prior breast surgeries or biopsies. She is 4, para 3. She was 13 at menarche and 26 at first live . She had a one-sided oophorectomy in 2009. A maternal aunt had breast cancer in the late 50s. 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 She is . She drinks rarely and does not smoke. 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 HTN (hypertension) ??? Allergic rhinitis ??? Intermittent asthma ??? Lumbar disc disease ??? Weight decreased 15lbs- last 6 months PSH: Past Surgical History Procedure Laterality Date ??? Hx oophorectomy 2010 ALLERGY: No Known Allergies MEDS: Current Outpatient Prescriptions Medication Sig Dispense Refill ??? lisinopril (PRINIVIL) 10 mg tablet Take 10 mg by mouth daily. ??? fexofenadine (SANYA) 180 mg tablet Take 180 mg by mouth daily. ??? frovatriptan (FROVA) 2.5 mg Tablet Take 2.5 mg by mouth every 2 hours as needed. may repeat in 2 hours; max dose 7.5mg in 24 hours No current facility-administered medications for this visit. Facility-Administered Medications Ordered in Other Visits Medication Dose Route Frequency Provider Last Rate Last Dose ??? lidocaine 1 % (XYLOCAINE) injection 30 mL 30 mL See Admin Instructions ONCE Eladia Rodarte MD ??? sodium bicarbonate 4.2 % injection 5 mEq 5 mEq See Admin Instructions ONCE Eladia Rodarte MD FHX: Family History Problem Relation Age of Onset ??? Cancer Maternal Grandmother 75 ??? Heart Disease Paternal Grandfather ??? Heart Disease Paternal Grandmother ??? Breast Cancer Maternal Aunt 55 SOC: History Social History ??? Marital Status: Spouse Name: N/A Number of Children: 3 ??? Years of Education: N/A Occupational History ??? Social History Main Topics ??? Smoking status: Never Smoker ??? Smokeless tobacco: Never Used ??? Alcohol Use: Yes Comment: rarely ??? Drug Use: No ??? Sexually Active: Yes -- Male partner(s) Other Topics Concern ??? Not on file Social History Narrative ??? No narrative on file ROS: Constitutional: Negative for fever, weight loss and malaise/fatigue. Respiratory: Negative for cough. + allergic rhinitis, intermittent asthma Cardiovascular: Negative for chest pain and leg swelling. + hypertension Gastrointestinal:. Negative for abdominal pain. + acid reflux Genitourinary: Negative for dysuria. Musculoskeletal: Negative for myalgias and joint pain. Skin: Negative for rash. Neurological: Negative for dizziness and headaches. Psychiatric/Behavioral: Negative for depression Endocrine: Negative for diabetes, negative for thyroid dysfunction Hematologic: Negative for anemia, bleeding disorders, HIV/AIDS BP 124/90 Pulse 74 Ht 5' 6 (1.676 m) Wt 167 lb (75.751 kg) BMI 26.97 kg/m2 LMP 10/26/2013 ? No PHYSICAL EXAM: Well-developed, well-nourished, pleasant woman. Neck - no thyromegaly no cervical adenopathy SCF- no adenopathy Chest - clear to auscultation Cardiovascular - regular rate and rhythm Axilla -no adenopathy Breasts - Right breast:normal in appearance, no skin changes or nipple discharge; 4 cm well-circumscribed bilobed mass upper outer quadrant Left breast: normal in appearance, no masses, skin changes or nipple discharge Abdomen - liver and spleen not palpably enlarged Extremities - Good range of motion of shoulders, no lymphedema present IMAGING: outside films are reviewed. Mammogram: January 28, 2013. [facility]. 4 cm density upper outer right breast Right breast ultrasound:February 16, 2013. Cluster of large simple cysts upper outer right breast at 10:00. Largest measures 3 cm. IMPRESSION /PLAN: 43 y.o. woman who presents with palpable mass upper outer right breast more likely corresponds to asimple cyst on breast ultrasound of January 2013 Personally reviewed her outside imaging and examined her carefully today We'll start with repeat right breast ultrasound followed by ultrasound-guided cyst aspiration The plan is discussed with her she shows excellent understanding If we are able to aspirate the area and proove it is a cyst, she will resume yearly screening mammography January 2014 Bethany Casey MD.FACS. cc: Alejandro Rodriguez MD [address] [place] [address] MERCERIZER OPERATOR HELPER documented in this encounter Plan of Treatment Not on file documented as of this encounter Results * MAMMO BREAST US ASPIRATION RIGHT (11/13/2013 4:12 PM YARN MERCERIZER OPERATOR HELPER) Anatomical Region Laterality Modality Breast Right Ultrasound 11/13/2013 4:11 PM YARN MERCERIZER OPERATOR HELPER Impressions 11/15/2013 7:42 AM YARN MERCERIZER OPERATOR HELPER IMPRESSION: Technically successful cyst aspiration using ultrasound guidance. OVERALL ASSESSMENT: ??BI-RADS category 2 - Benign findings Dictated from [facility] Wells Narrative 11/15/2013 7:42 AM YARN MERCERIZER OPERATOR HELPER ULTRASOUND-GUIDED RIGHT BREAST CYST ASPIRATION ??11/13/13 ?? HISTORY: Patient has 2 adjacent cysts at the 9:00 position of the right breast. PROCEDURE AND FINDINGS: The procedure was discussed with the patient and informed consent was obtained. After sterile preparation of the skin, 1% lidocaine was utilized for local anesthesia. A 21 gauge needle was advanced into the level of interest using sonographic guidance. 13 cc of dark brown thin fluid were withdrawn and the lesion collapsed completely. The fluid was discarded. There is no evidence of residual solid or cystic lesion post aspiration procedure. Hemostasis was achieved. A sterile bandage was applied. The patient tolerated the procedure well and there was no evidence of immediate complication. Procedure Note Eladia Rodarte MD - 11/15/2013 ULTRASOUND-GUIDED RIGHT BREAST CYST ASPIRATION 11/13/13 HISTORY: Patient has 2 adjacent cysts at the 9:00 position of the right breast. PROCEDURE AND FINDINGS: The procedure was discussed with the patient and informed consent was obtained. After sterile preparation of the skin, 1% lidocaine was utilized for local anesthesia. A 21 gauge needle was advanced into the level of interest using sonographic guidance. 13 cc of dark brown thin fluid were withdrawn and the lesion collapsed completely. The fluid was discarded. There is no evidence of residual solid or cystic lesion post aspiration procedure. Hemostasis was achieved. A sterile bandage was applied. The patient tolerated the procedure well and there was no evidence of immediate complication. IMPRESSION IMPRESSION: Technically successful cyst aspiration using ultrasound guidance. OVERALL ASSESSMENT: BI-RADS category 2 - Benign findings Dictated from Valeria Wells Bethany Casey MD MAMMO ORDERABLES * MAMMO BREAST US RT (11/13/2013 3:51 PM YARN MERCERIZER OPERATOR HELPER) Anatomical Region Laterality Modality Breast Right Ultrasound 11/13/2013 3:51 PM YARN MERCERIZER OPERATOR HELPER Narrative 11/15/2013 7:42 AM YARN MERCERIZER OPERATOR HELPER RIGHT BREAST ULTRASOUND 11/13/13 HISTORY: ?? Right breast palpable abnormality. Technique: A right breast ultrasound was performed. Comparison is made with previous studies dated January 2013 from an outside institution. FINDINGS: At the 9:00 position of the right breast, 2.3 x 2.4 x 3.2 cm cyst is identified. This may in fact be 2 adjacent cysts. No solid masses are identified within the right breast laterally. Overall assessment: BI-RADS category 2. Benign findings. Recommendation: Patient has requested an ultrasound-guided aspiration of the 2 adjacent cysts in the right breast at the 9:00 position. This will be performed for the patient today. Dictated from Valeria [facility] Procedure Note Eladia Rodarte MD - 11/15/2013 RIGHT BREAST ULTRASOUND 11/13/13 HISTORY: Right breast palpable abnormality. Technique: A right breast ultrasound was performed. Comparison is made with previous studies dated January 2013 from an outside institution. FINDINGS: At the 9:00 position of the right breast, 2.3 x 2.4 x 3.2 cm cyst is identified. This may in fact be 2 adjacent cysts. No solid masses are identified within the right breast laterally. Overall assessment: BI-RADS category 2. Benign findings. Recommendation: Patient has requested an ultrasound-guided aspiration of the 2 adjacent cysts in the right breast at the 9:00 position. This will be performed for the patient today. Dictated from Valeria Wells Bethany Casey MD MAMMO ORDERABLES documented in this encounter Visit Diagnoses Diagnosis Breast lump- Primary Lump or mass in breast Breast lump Lump or mass in breast Breast lump Lump or mass in breast documented in this encounter Care Teams Audit Analyst Relationship Specialty Start Date End Date Ok Lujan MD [address] [place] [address] PCP - General Family Practice 11/13/13 documented as of this encounter
--- OUTSIDE RECORDS SUMMARY | 2024-11-13 21:53 | XMS_ITS | Encounter Summary ---
Author Organization [facility] Address [address] [place] [address] Care Team Providers Care Post Anesthesia Room Nurse Name Role Phone Unavailable Primary Care Provider Unavailabl e Encounter Details Date Type Department Care Team (Latest Contact Info) Description 12/05/2009 6:35 AM APPLICATION SUPPORT ADMINISTRATOR - 12/05/2009 11:59 PM APPLICATION SUPPORT ADMINISTRATOR Hospital Encounter [facility] [place] [address] [place] [id number] [facility], External Provider [address] [place] [address] Discharge Disposition: Home or Self Care Social History Tobacco Use Types Packs/Day Years Used Date Smoking Tobacco: Never Assessed Sex and Gender Information Value Date Recorded Sex Assigned at Not on file Gender Identity Not on file Sexual Orientation Not on file documented as of this encounter Plan of Treatment Not on file documented as of this encounter Procedures Procedure Name Priority Date/Time Associated Diagnosis Comments MAMMO PRIOR STUDY Routine 12/05/2009 6:3 5 AM APPLICATION SUPPORT ADMINISTRATOR Follow up documented in this encounter Results * MAMMO PRIOR STUDY (12/05/2009 6:35 AM APPLICATION SUPPORT ADMINISTRATOR) Narrative Cheryl Tovar, RT - 03/03/2016 8:35 AM CDT This exam was auto finalized to allow images to be scanned to PACS. External Provider [facility] DIAGNOSTIC IMAGI NG ORDERABLES documented in this encounter Visit Diagnoses Diagnosis Follow up documented in this encounter
--- OUTSIDE RECORDS SUMMARY | 2024-11-13 21:53 | XMS_ITS | Encounter Summary ---
Author Organization [facility] Address [address] [place] [address] Care Team Providers Care Nurse Tech Name Role Phone Unavailable Primary Care Provider Unavailabl e Encounter Details Date Type Department Care Team (Latest Contact Info) Description 03/21/2011 8:35 AM CDT - 03/21/2011 11:59 PM CDT Hospital Encounter [facility] Medical [place] [address] [place] [address] [facility], External Provider [address] [place] [address] Discharge Disposition: Home or Self Care Social [...] Associated Diagnosis Comments MAMMO PRIOR STUDY Routine 03/21/2011 8:3 5 AM CDT Follow up documented in this encounter Results * MAMMO PRIOR STUDY (03/21/2011 8:35 AM CDT) Narrative Cheryl Tovar, RT - 03/03/2016 8:33 AM CDT This exam was auto finalized to allow images to be scanned to PACS. External Provider [facility] DIAGNOSTIC IMAGI NG ORDERABLES documented in this encounter Visit Diagnoses Diagnosis Follow up documented in this encounter
--- OUTSIDE RECORDS SUMMARY | 2024-11-13 21:53 | XMS_ITS | Encounter Summary ---
Author Organization [facility] Address [address] [place] [address] Care Team Providers Care Purchasing Coordinator Name Role Phone Ok Lujan MD Primary Care Provider +1- [phone] Reason for Referral * Outpatient Services (Routine) - Closed Specialty Diagnoses / Procedures Referred By Contac t Referred To Contact Diagnoses Abnormal mammogram Procedures MAMMO DIGITAL DIAG UNI LEFT Bethany Casey MD [address] [place] [address] Referral ID Status Reason Start Date Expiration Date Visits Re quested Visits Authorized [id number] Closed 03/05/2016 04/05/2017 1 1 Encounter Details Date Type Department Care Team (Late st Contact Info) Description 03/05/2016 Orders Only [facility] [address] [facility] [address] [place] [address] Bethany Casey MD [address] [place] [address] Abnormal mammogram (Primary Dx) Social History Tobacco Use Types [...] as of this encounter Results * MAMMO DIGITAL DIAG UNI LEFT (03/10/2016 3:52 PM CDT) Anatomical Region Laterality Modality Breast Left Mammography 03/10/2016 3:52 PM CDT Impressions 03/11/2016 8:48 AM CDT IMPRESSION: Benign-appearing asymmetry central left breast. Recommend routine annual follow-up ?? OVERALL ASSESSMENT: ??BI-RADS category 2 - Benign findings Narrative 03/11/2016 8:48 AM CDT SPOT VIEWS LEFT BREAST WITH CAD AND SONOGRAM LEFT BREAST LIMITED 03/10/16 HISTORY: ??Abnormal screening exam Patient had a screening mammogram on 02/27/2016 which demonstrated an area of possible of asymmetry and possible distortion in the central left breast. She returns for further imaging with a mediolateral view, repeat CC and oblique views, spot views and sonography. On the spot views, a definite mass does not persist. A definite area of distortion does not persist. There is dense glandular tissue in the central left breast. CAD was utilized. ??Further evaluation of the central breast with sonography was performed. There is heterogeneously dense or echogenic fibroglandular tissue. There are mildly dilated ducts in the subareolar breast. There are occasional tiny benign-appearing cysts. No suspicious mass, shadowing or distortion is identified. Procedure Note Vielka Lan MD - 03/11/2016 SPOT VIEWS LEFT BREAST WITH CAD AND SONOGRAM LEFT BREAST LIMITED 03/10/16 HISTORY: Abnormal screening exam Patient had a screening mammogram on 02/27/2016 which demonstrated an area of possible of asymmetry and possible distortion in the central left breast. She returns for further imaging with a mediolateral view, repeat CC and oblique views, spot views and sonography. On the spot views, a definite mass does not persist. A definite area of distortion does not persist. There is dense glandular tissue in the central left breast. CAD was utilized. Further evaluation of the central breast with sonography was performed. There is heterogeneously dense or echogenic fibroglandular tissue. There are mildly dilated ducts in the subareolar breast. There are occasional tiny benign-appearing cysts. No suspicious mass, shadowing or distortion is identified. IMPRESSION IMPRESSION: Benign-appearing asymmetry central left breast. Recommend routine annual follow-up OVERALL ASSESSMENT: BI-RADS category 2 - Benign findings Bethany Casey MD MAMMO ORDERABLES documented in this encounter Visit Diagnoses Diagnosis Abnormal mammogram- Primary Abnormal mammogram, unspecified Abnormal mammogram Abnormal mammogram, unspecified documented in this encounter Care Teams Purchasing Coordinator Relationship Specialty Start Date End Date Ok Lujan MD [address] [address] PCP - General Family Practice 11/13/13 documented as of this encounter
--- OUTSIDE RECORDS SUMMARY | 2024-11-13 21:53 | XMS_ITS | Clinical Summary ---
Author Organization [facility] Address [address] [place] [address] Care Team Providers Care Brim Raiser Name Role Phone Ok Lujan MD Primary Care Provider +1 [phone] Allergies No known active allergies Medications Medication Sig Dispensed Refills Start Date End Date Status lisinopril (PRINIVIL) 10 mg tabletIndications:[place] st lump Take 10 mg by mouth daily. Active fexofenadine (SANYA) 180 mg tabletIndications:[place] st lump Take 180 mg by mouth daily. Active frovatriptan (FROVA) 2.5 mg TabletIndications:[place] st lump Take 2.5 mg by mouth every 2 hours as needed. may repeat in 2 hours; max dose 7.5mg in 24 hours Active Active Problems Patient Care Coordination No te Formatting of this note migh t be different from the original. Primary Care: Ok Lujan MD Referring Provider: Alejandro Rodriguez MD [address] [place] [id number] Other: Problem Noted Date Diagnosed Date Abnormal mammogram 03/05/2016 Nipple discharge 02/26/2015 HTN (hypertension) Allergic rhinitis Intermittent asthma Lumbar disc disease Weight decreased Resolved Problems Problem Noted Date Diagnosed Date Resolved Date Breast lump 11/13/2013 02/26/2015 Family History Medical History Relation Name Comments Breast Cancer Maternal Aunt Cancer Maternal Grandmother Heart Disease Paternal Grandfather Heart Disease Paternal Grandmother Ovarian Cancer Neg Hx Relation Name Status Comments Maternal Aunt Alive Maternal Grandmother Paternal Grandfather Paternal Grandmother Social History Tobacco Use Types Packs/Day Years Used Date Smoking Tobacco: Never Smokeless Tobacco: Never Alcohol Use Standard Drinks/Week Comments Yes 0 (1 standard drink = 0.6 oz pur e alcohol) rarely Sex and Gender Information Value Date Recorded Sex Assigned at Not on file Gender Identity Not on file Sexual Orientation Not on file Last Filed Vital Signs Vital Sign Reading Time Taken Comments Blood Pressure 127/82 02/26/2015 3:27 PM CDT Pulse 68 02/26/2015 3:27 PM CDT Temperature - - Respiratory Rate - - Oxygen Saturation - - Inhaled Oxygen Concentration - - Weight 74.3 kg (163 lb 12.8 oz) 02/26/2015 3:27 PM CDT Height 167.6 cm (5' 6 ) 02/26/2015 3:27 PM CDT Body Mass Index 26.44 02/26/2015 3:27 PM CDT Plan of Treatment Health Maintenance Due Date Last Done Comments PNEUMOCOCCAL VACCINE 0-64 YE ARS (1 of 2 - PCV) 1974 DTAP/TDAP/TD VACCINES (1 - Tdap) 1987 HEPATITIS B VACCINES (1 of 3 - 19+ 3-dose series) 1987 CERVICAL CANCER SCREENING 1998 COLORECTAL SCREENING 2013 Colorectal Cancer Screening 2013 FIT-DNA Q 3 years 2013 FIT/FOBT Q 1 year 2013 Flex Sig/CT Colonography Q 5 years 2013 BREAST CANCER SCREENING 03/10/2017 03/10/20 16, 02/27/2016, 02/09/2015, Additional history exists ZOSTER VACCINE (1 of 2) 2018 INFLUENZA VACCINE (#1) 2024 Procedures Procedure Name Priority Date/Time Associated Diagnosis Comments MAMMO DIAGNOSTIC UNI LEFT W OR WO CAD Routine 03/10/2016 3:52 PM CDT Abnormal mammogram from Last 3 Months or Most Recently Relevant to Health Maintenance Results * MAMMO DIGITAL DIAG UNI LEFT [...] Benign findings Bethany Casey MD MAMMO ORDERABLES from Last 3 Months or Most Recently Relevant to Health Maintenance Care Teams Brim Raiser Relationship Specialty Start Date End Date Ok Lujan MD [address] [place] [address] PCP - General Family Practice 11/13/13
--- OUTSIDE RECORDS SUMMARY | 2024-11-13 21:53 | XMS_ITS | Encounter Summary ---
Author Organization [facility] Address [address] [place] [address] Care Team Providers Care Store Administrative Assistant Name Role Phone Unavailable Primary Care Provider Unavailabl e Encounter Details Date Type Department Care Team (Latest Contact Info) Description 01/28/2013 8:30 AM FLIGHT MANAGER - 01/28/2013 11:59 PM FLIGHT MANAGER Hospital Encounter [facility] Medical [place] A [address] [place] [id number] [facility], External Provider [address] [place] [address] Discharge Disposition: Home or Self Care Social [...] Associated Diagnosis Comments MAMMO PRIOR STUDY Routine 01/28/2013 8:3 0 AM FLIGHT MANAGER Follow up documented in this encounter Results * MAMMO PRIOR STUDY (01/28/2013 8:30 AM FLIGHT MANAGER) Narrative Cheryl Tovar, RT - 03/03/2016 8:28 AM CDT This exam was auto finalized to allow images to be scanned to PACS. External Provider [facility] DIAGNOSTIC IMAGI NG ORDERABLES documented in this encounter Visit Diagnoses Diagnosis Follow up documented in this encounter
--- OUTSIDE RECORDS SUMMARY | 2024-11-13 21:53 | XMS_ITS | Encounter Summary ---
Author Organization [facility] Address [address] [place] [address] Care Team Providers Care Learning And Development Administrator Name Role Phone Unavailable Primary Care Provider Unavailabl e Encounter Details Date Type Department Care Team (Latest Contact Info) Description 02/16/2013 8:30 AM CDT - 02/16/2013 11:59 PM CDT Hospital Encounter [facility] Medical [place] A [address] [place] [address] [facility], External Provider [address] [place] [address] Discharge Disposition: Home or Self Care Social [...] Associated Diagnosis Comments MAMMO PRIOR STUDY Routine 02/16/2013 8:3 0 AM CDT Follow up documented in this encounter Results * MAMMO PRIOR STUDY (02/16/2013 8:30 AM CDT) Narrative Cheryl Tovar, RT - 03/03/2016 8:29 AM CDT This exam was auto finalized to allow images to be scanned to PACS. External Provider [facility] DIAGNOSTIC IMAGI NG ORDERABLES documented in this encounter Visit Diagnoses Diagnosis Follow up documented in this encounter
--- OUTSIDE RECORDS SUMMARY | 2024-11-13 21:53 | XMS_ITS | Encounter Summary ---
Author Organization [facility] Address [address] [place] [address] Care Team Providers Care Bursar Name Role Phone Ok Lujan MD Primary Care Provider +1- [phone] Reason for Referral * Outpatient Services (Routine) - Closed Specialty Diagnoses / Procedures Referred By Contac t Referred To Contact Diagnoses Breast lump Procedures MAMMO BREAST US RT Bethany Casey MD [address] [place] [address] Referral ID Status Reason Start Date Expiration Date Visits Re quested Visits Authorized [id number] Closed 11/13/2013 12/14/2014 1 1 OR OF AUDIOLOGY Reason for Visit * Auth/Cert - Closed Specialty Diagnoses / Procedures Referred By Contac t Referred To Contact Radiology [facility] [address] [place] [address] Referral ID Status Reason Start Date Expiration Date Visits Re quested Visits Authorized [id number] Closed 1 1 Encounter Details Date Type Department Care Team (Latest Contact Info) Description 11/13/2013 3:27 PM DOCTOR OF AUDIOLOGY - 11/13/2013 11:59 PM DOCTOR OF AUDIOLOGY Hospital Encounter [facility] [address] [place] [address] Bethany Casey MD [address] [address] Discharge Disposition: Home or Self Care Social [...] on file documented as of this encounter Medications at Time of Discharge Medication Sig Dispensed Refills Start Date End Date lisinopril (PRINIVIL) 10 mg tabletIndications:Breast lump Take 10 mg by mouth daily. fexofenadine (SANYA) 180 mg tabletIndications:Breast lump Take 180 mg by mouth daily. frovatriptan (FROVA) 2.5 mg TabletIndications:Breast lump Take 2.5 mg by mouth every 2 hours as needed. may repeat in 2 hours; max dose 7.5mg in 24 hours documented as of this encounter Plan of Treatment Not on file documented as of this encounter Procedures Procedure Name Priority Date/Time Associated Diagnosis Comments MAMMO BREAST US RT COMPLETE Routine 11/13/2013 3:51 PM DOCTOR OF AUDIOLOGY Breast lump documented in this encounter Results * MAMMO BREAST US RT (11/13/2013 3:51 PM DOCTOR OF AUDIOLOGY) Anatomical Region Laterality Modality Breast Right Ultrasound 11/13/2013 3:51 PM DOCTOR OF AUDIOLOGY Narrative 11/15/2013 7:42 AM DOCTOR OF AUDIOLOGY RIGHT BREAST ULTRASOUND 11/13/13 HISTORY: ?? Right [...] performed for the patient today. Dictated from [facility] Procedure Note Eladia Rodarte MD - 11/15/2013 [...] performed for the patient today. Dictated from [facility] Bethany Casey MD MAMMO ORDERABLES documented in this encounter Visit Diagnoses Diagnosis Breast lump Lump or mass in breast documented in this encounter Care Teams Bursar Relationship Specialty Start Date End Date Ok Lujan MD [address] [place] [address] PCP - General Family Practice 11/13/13 documented as of this encounter
--- OUTSIDE RECORDS SUMMARY | 2024-11-13 21:53 | XMS_ITS | Encounter Summary ---
Author Organization [facility] Address [address] [place] [address] Care Team Providers Care Account Services Manager Name Role Phone Ok Lujan MD Primary Care Provider +1 [phone] Reason for Visit * Reason Comments Breast Discharge right breast Encounter Details Date Type Department Care Team (Late st Contact Info) Description 02/26/2015 3:15 PM CDT Office Visit [facility] BREAST SURGERY - [place] A [address] [facility] [address] [place] [address] Bethany Casey MD [address] [place] [address] Nipple discharge (Primary Dx) Social History Tobacco Use Types [...] Mass Index 26.44 02/26/2015 3:27 PM CDT documented in this encounter Progress Notes * Bethany Casey MD - 02/26/2015 3:45 PM CDT PATIENT: Jumana Campoverde : 1970 DATE: 02/26/2015 Jumana Campoverde is a 44 y.o. female. She Comes in for evaluation of nipple discharge she noticed on the right side upon squeezing. She noted it was bloody in color. She denies prior breast surgeries or biopsies. She is 2, para 3. She was 13 at menarche and 26 at first live . She had a one-sided oophorectomy in 2009. A maternal aunt had breast cancer in the late 50s. 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 She is . She drinks rarely and does not smoke. PMH: Past Medical History Diagnosis Date ??? [...] No current facility-administered medications for this visit. FHX: Family History Problem Relation Age of [...] Comment: rarely ??? Drug Use: No ??? Sexual Activity: Partners: Male Other Topics Concern ??? Not on file Social History Narrative ROS: Constitutional: Negative for fever, weight loss [...] Negative for anemia, bleeding disorders, HIV/AIDS BP 127/82 Pulse 68 Ht 5' 6 (1.676 m) Wt 163 lb 12.8 oz (74.299 kg) BMI 26.45 kg/m2 LMP 02/24/2015 ? No PHYSICAL EXAM: Well-developed, well-nourished, pleasant woman. Neck - no thyromegaly no cervical adenopathy SCF- no adenopathy Axilla -no adenopathy Breasts - Right breast:normal in appearance, no skin changes or nipple discharge; I was unable to elicit any discharge when I examined her. She was able to elicit a drop of greenish discharge when I let her squeeze herself Left breast: normal in appearance, no masses, skin changes or nipple discharge Extremities - Good range of motion of shoulders, no lymphedema present IMAGING: outside films are reviewed. Mammogram: January 28, 2013. [facility]. 4 cm density upper outer right breast Right breast ultrasound:February 16, 2013. Cluster of large simple cysts upper outer right breast at 10:00. Largest measures 3 cm. Mammogram: February 09, 2015. [facility] in [place], [place]. Stable 2.5 cm density consistent with cyst. No other abnormalities IMPRESSION /PLAN: 44 y.o. woman who presents for evaluation of right discharge past week I have personally examined and reviewed her mammogram She has greenish discharge consistent with fibrocystic changes and requires no further interventionat this time I went over the findings with her and reassured her that no further intervention is necessary She will continue monthly breast self-exam, continue clinical exams and screening mammogram January 2016 Bethany Casey MD.FACS. cc: [place] [address] [place] [address] documented in this encounter Plan of Treatment Not on file documented as of this encounter Visit Diagnoses Diagnosis Nipple discharge- Primary Other sign and symptom in breast documented in this encounter Care Teams Account Services Manager Relationship Specialty Start Date End Date Ok Lujan MD [address] [place] [address] PCP - General Family Practice 11/13/13 documented as of this encounter
--- OUTSIDE RECORDS SUMMARY | 2024-11-13 21:53 | XMS_ITS | Encounter Summary ---
Author Organization [facility] Address [address] [place] [address] Care Team Providers Care Structural Drafter Name Role Phone Ok Lujan MD Primary Care Provider +1- [phone] Reason for Referral * Outpatient Services (Routine) - Closed Specialty Diagnoses / Procedures Referred By Contac t Referred To Contact Diagnoses Breast lump Procedures MAMMO BREAST US ASPIRATION RIGHT Bethany Casey MD [address] [facility] [address] Referral ID Status Reason Start Date Expiration Date Visits Re quested Visits Authorized [id number] Closed 11/13/2013 12/14/2014 1 1 NE RETAILER Reason for Visit * Auth/Cert - Closed Specialty Diagnoses / Procedures Referred By Contac t Referred To Contact Radiology [facility] Breast Ctr [address] [place] [address] Referral ID Status Reason Start Date Expiration Date Visits Re quested Visits Authorized [id number] Closed 1 1 Encounter Details Date Type Department Care Team (Latest Contact Info) Description 11/13/2013 3:26 PM ONLINE RETAILER - 11/13/2013 11:59 PM ONLINE RETAILER Hospital Encounter [facility] [address] [place] [address] Bethany Casey MD [address] [place] [address] Discharge Disposition: Home or Self Care [...] 24 hours documented as of this encounter H&P Notes * Lilly Montes - 11/18/2013 1:11 PM CST NE RETAILER documented in this encounter Plan of Treatment Not on file documented as of this encounter Procedures Procedure Name Priority Date/Time Associated Diagnosis Comments MAMMO BREAST CYST US ASPIRATION RIGHT Routine 11/13/2013 4:12 PM ONLINE RETAILER Breast lump documented in this encounter Results * MAMMO BREAST US ASPIRATION RIGHT (11/13/2013 4:12 PM ONLINE RETAILER) Anatomical Region Laterality Modality Breast Right Ultrasound 11/13/2013 4:11 PM ONLINE RETAILER Impressions 11/15/2013 7:42 AM ONLINE RETAILER IMPRESSION: Technically successful cyst aspiration using ultrasound guidance. OVERALL ASSESSMENT: ??BI-RADS category 2 - Benign findings Dictated from [facility] Narrative 11/15/2013 7:42 AM ONLINE RETAILER ULTRASOUND-GUIDED RIGHT BREAST CYST ASPIRATION ??11/13/13 ?? [...] category 2 - Benign findings Dictated from [facility] Bethany Casey MD MAMMO ORDERABLES documented in this encounter Visit Diagnoses Diagnosis Breast lump Lump or mass in breast documented in this encounter Care Teams Structural Drafter Relationship Specialty Start Date End Date Ok Lujan MD [address] [place] [address] PCP - General Family Practice 11/13/13 documented as of this encounter
--- OUTSIDE RECORDS SUMMARY | 2024-11-13 21:53 | XMS_ITS | Encounter Summary ---
Author Organization [facility] Address [address] [place] [address] Care Team Providers Care Counselor Marriage And Family Name Role Phone Unavailable Primary Care Provider Unavailabl e Encounter Details Date Type Department Care Team (Latest Contact Info) Description 04/02/2011 8:35 AM CDT - 04/02/2011 11:59 PM CDT Hospital En[facility] Medical [place] A [address] [place] [address] [facility], External Provider [address] [place] [address] Discharge Disposition: Home or Self Care Social [...] Associated Diagnosis Comments MAMMO PRIOR STUDY Routine 04/02/2011 8:3 5 AM CDT Follow up documented in this encounter Results * MAMMO PRIOR STUDY (04/02/2011 8:35 AM CDT) Narrative Cheryl Tovar, RT - 03/03/2016 8:32 AM CDT This exam was auto finalized to allow images to be scanned to PACS. External Provider [facility] DIAGNOSTIC IMAGI NG ORDERABLES documented in this encounter Visit Diagnoses Diagnosis Follow up documented in this encounter
--- OUTSIDE RECORDS SUMMARY | 2024-11-13 21:53 | XMS_ITS | Encounter Summary ---
Author Organization [facility] Address [address] [place] [address] Care Team Providers Care Organizational Effectiveness Director Name Role Phone Ok Lujan MD Primary Care Provider Encounter Details Date Type Department Care Team (Latest Contact Info) Description 02/09/2015 8:30 AM CDT - 02/09/2015 11:59 PM [facility] Hospital Encounter [facility] Medical [place] A [address] [place] [address] [facility], External Provider [address] [place] [address] Discharge Disposition: Home or Self Care Social [...] Associated Diagnosis Comments MAMMO PRIOR STUDY Routine 02/09/2015 8:3 0 AM CDT Follow up documented in this encounter Results * MAMMO PRIOR STUDY (02/09/2015 8:30 AM CDT) Narrative La Cheryl B, RT - 03/03/2016 8:27 AM CDT This exam was auto finalized to allow images to be scanned to PACS. External Provider [facility] DIAGNOSTIC IMAGI NG ORDERABLES documented in this encounter Visit Diagnoses Diagnosis Follow up documented in this encounter Care Teams Organizational Effectiveness Director Relationship Specialty Start Date End Date Ok Lujan MD [address] [place] [address] PCP - General Family Practice 11/13/13 documented as of this encounter
--- OUTSIDE RECORDS SUMMARY | 2024-11-13 21:53 | XMS_ITS | Encounter Summary ---
Author Organization [facility] Address [address] [place] [address] Care Team Providers Care Mental Health Therapist Name Role Phone Ok Lujan MD Primary Care Provider [phone]- [phone] Reason for Referral * Outpatient Services (Routine) - Closed Specialty Diagnoses / Procedures Referred By Benny saldivar Referred To Contact Diagnoses Encounter for screening mammogram for breast cancer Procedures MAMMO DIG SCREEN BILAT W 3[place] [address] [place] [address] Referral ID Status Reason Start Date Expiration Date Visits Re quested Visits Authorized [id number] Closed 02/11/2016 03/13/2017 1 1 Reason for Visit * Outpatient Services (Routine) - Closed Specialty Diagnoses / Procedures Referred By Benny saldivar Referred To Contact Diagnoses Encounter for screening mammogram for breast cancer Procedures MAMMO DIG SCREEN BILAT W 3[place] [address] [place] [address] Referral ID Status Reason Start Date Expiration Date Visits Re quested Visits Authorized [id number] Closed 02/11/2016 03/13/2017 1 1 Encounter Details Date Type Department Care Team (Latest Contact Info) Description 02/27/2016 2:30 PM CDT - 02/27/2016 11:59 PM CDT Hospital Encounter [facility] [place] [address] [place] [address] [place] [address] [place] [address] Discharge Disposition: Home or Self Care Social [...] Name Priority Date/Time Associated Diagnosis Comments MAMMO 3D LACIE SCREEN BILAT W OR WO CAD Routine 02/27/2016 3:21 PM CDT Encounter for screening mammogram for breast cancer documented in this encounter Results * MAMMO DIG SCREEN BILAT W 3D LACIE (02/27/2016 3:21 PM CDT) Anatomical Region Laterality Modality Breast Bilateral Mammography 02/27/2016 3:22 PM CDT Addenda Addendum by Vielka Lan MD on 03/04/2016 4:40 PM CDT ADDENDUM: Comparison is now made with multiple previous films from [facility] dated September 2009 and January 2015. The right breast is stable. There is slight increase in asymmetry and possible distortion in the central left breast. This may be secondary to multiple small cysts. Recommend further evaluation with spot views and sonography. OVERALL ASSESSMENT: BI-RADS Category: 0. Incomplete, needs additional imaging evaluation. Impressions 02/28/2016 7:44 AM CDT IMPRESSION: No prior films are currently available for comparison. The prior films from 2012 will be requested and once received an addendum will be made. OVERALL ASSESSMENT: ??BI-RADS category 0 - Incomplete: Needs comparison to prior images. Narrative 02/28/2016 7:44 AM CDT BILATERAL SCREENING DIGITAL MAMMOGRAMS WITH COMPUTER ASSISTED DIAGNOSIS WITH 3D TOMOSYNTHESIS DATE: ? 02/27/2016 3:21 PM HISTORY: Annual screening study. FINDINGS: ??Comparison films are not available. Low Dose full field Digital Breast tomosynthesis examination was performed with 2D and 3D acquisitions. ??Examination is read in conjunction with computer aided detection. The breast parenchyma is heterogeneously dense. ?? Procedure Note Vielka Lan MD - 02/28/2016 BILATERAL SCREENING DIGITAL MAMMOGRAMS WITH COMPUTER ASSISTED DIAGNOSIS WITH 3D TOMOSYNTHESIS DATE: 02/27/2016 3:21 PM HISTORY: Annual screening study. FINDINGS: Comparison films are not available. Low Dose full field Digital Breast tomosynthesis examination was performed with 2D and 3D acquisitions. Examination is read in conjunction with computer aided detection. The breast parenchyma is heterogeneously dense. IMPRESSION IMPRESSION: No prior films are currently available for comparison. The prior films from 2012 will be requested and once received an addendum will be made. OVERALL ASSESSMENT: BI-RADS category 0 - Incomplete: Needs comparison to prior images. Alejandro Rodriguez MD MAMMO ORDERABLES documented in this encounter Visit Diagnoses Diagnosis Encounter for screening mammogram for breast cancer documented in this encounter Care Teams Mental Health Therapist Relationship Specialty Start Date End Date Ok Lujan MD [address] [place] [address] PCP - General Family Practice 11/13/13 documented as of this encounter
--- OUTSIDE RECORDS SUMMARY | 2024-11-13 21:53 | XMS_ITS | Encounter Summary ---
Author Organization [facility] Address [address] [place] [address] Care Team Providers Care Obstetric Assistant Name Role Phone Ok Lujan MD Primary Care Provider [phone]- [phone] Encounter Details Date Type Department Care Team (Late st Contact Info) Description 03/04/2015 Abstract [facility] BREAST SURGERY - [place] [address] [facility] [address] [place] [address] Bethany Casey MD [address] [place] [phone] Social History Tobacco Use Types Packs/Day Years [...] Name Priority Date/Time Associated Diagnosis Comments MAMMO SCREEN BILAT W OR WO CAD Routine 02/09/2015 documented in this encounter Results * MAMMO DIGITAL SCREEN BILAT (02/09/2015) Anatomical Region Laterality Modality Breast Bilateral Other Ok Lujan MD MAMMO ORDERABLES documented in this encounter Visit Diagnoses Not on filedocumented in this encounter Care Teams Obstetric Assistant Relationship Specialty Start Date End Date Ok Lujan MD [address] [place] [address] PCP - General Family Practice 11/13/13 documented as of this encounter
--- OUTSIDE RECORDS SUMMARY | 2024-11-13 21:53 | XMS_ITS | Encounter Summary ---
Author Organization [facility] Address [address] [place] [address] Care Team Providers Care Gasoline Service Attendant Name Role Phone Ok Lujan MD Primary Care Provider [phone]- [phone] Reason for Referral * Outpatient Services (Routine) - Closed Specialty Diagnoses / Procedures Referred By Benny saldivar Referred To Contact Diagnoses Abnormal mammogram Procedures MAMMO BREAST US LEFT LTD Bethany Casey MD [address] [facility] [place] [address] Referral ID Status Reason Start Date Expiration Date Visits Re quested Visits Authorized [id number] Closed 03/10/2016 04/10/2017 1 1 Reason for Visit * Outpatient Services (Routine) - Closed Specialty Diagnoses / Procedures Referred By Benny saldivar Referred To Contact Diagnoses Abnormal mammogram Procedures MAMMO BREAST US LEFT LTD Bethany Casey MD [address] [place] [address] Referral ID Status Reason Start Date Expiration Date Visits Re quested Visits Authorized [id number] Closed 03/10/2016 04/10/2017 1 1 Encounter Details Date Type Department Care Team (Latest Contact Info) Description 03/10/2016 3:09 PM CDT - 03/10/2016 11:59 PM CDT Hospital Encounter [facility] [place] A [address] [place] [phone] Bethany Casey MD [address] [place] [phone] Discharge Disposition: Home or Self Care [...] Date/Time Associated Diagnosis Comments MAMMO BREAST US LEFT LTD Routine 03/10/2016 3:52 PM CDT Abnormal mammogram documented in this encounter Results * MAMMO BREAST US LEFT LTD (03/10/2016 3:52 PM CDT) Anatomical Region Laterality Modality Left Ultrasound 03/10/2016 3:52 PM CDT Impressions 03/11/2016 8:48 [...] in this encounter Visit Diagnoses Diagnosis Abnormal mammogram Abnormal mammogram, unspecified documented in this encounter Care Teams Gasoline Service Attendant Relationship Specialty Start Date End Date Ok Lujan MD [address] [place] [address] PCP - General Family Practice 11/13/13 documented as of this encounter
--- OUTSIDE RECORDS SUMMARY | 2024-11-13 21:53 | XMS_ITS | Encounter Summary ---
Author Organization [facility] Address [address] [place] [address] Care Team Providers Care Top Dyeing Machine Tender Name Role Phone Ok Lujan MD Primary Care Provider +1- [phone] Reason for Referral * Outpatient Services (Routine) - Closed Specialty Diagnoses / Procedures Referred By Benny saldivar Referred To Contact Diagnoses Abnormal mammogram Procedures MAMMO DIGITAL DIAG UNI Bethany Kingsley MD [address] [place] [phone] Referral ID Status Reason Start Date Expiration Date Visits Re quested Visits Authorized [id number] Closed 03/05/2016 04/05/2017 1 1 Reason for Visit * Outpatient Services (Routine) - Closed Specialty Diagnoses / Procedures Referred By Benny saldivar Referred To Contact Diagnoses Abnormal mammogram Procedures MAMMO DIGITAL DIAG Bethany Gallardo MD [address] [place] [phone] Referral ID Status Reason Start Date Expiration Date Visits Re quested Visits Authorized [id number] Closed 03/05/2016 04/05/2017 1 1 Encounter Details Date Type Department Care Team (Latest Contact Info) Description 03/10/2016 3:00 PM CDT - 03/10/2016 11:59 PM CDT Hospital Encounter [facility] [place] A [address] [place] [phone] Bethany Casey MD [address] [place] [phone] Discharge Disposition: Home or Self Care [...] 24 hours documented as of this encounter Progress Notes * Bethany Casey MD - 03/11/2016 9:43 AM CDTQuick Note: Please let her know the additional breast imaging is ok Can resume screening mammogram next year Thanks documented in this encounter Plan of Treatment Not on file documented as of this encounter Procedures Procedure Name Priority Date/Time Associated Diagnosis Comments MAMMO DIAGNOSTIC UNI LEFT W OR WO CAD Routine 03/10/2016 3:52 PM CDT Abnormal mammogram documented in this encounter Results * MAMMO DIGITAL DIAG [...] unspecified documented in this encounter Care Teams Top Dyeing Machine Tender Relationship Specialty Start Date End Date Ok Lujan MD [address] [place] [phone] PCP - General Family Practice 11/13/13 documented as of this encounter
--- OUTSIDE RECORDS SUMMARY | 2024-11-13 21:53 | XMS_ITS | Encounter Summary ---
Author Organization [facility] Address [address] [place] [address] Care Team Providers Care Setup Operator Name Role Phone Unavailable Primary Care Provider Unavailabl e Encounter Details Date Type Department Care Team (Latest Contact Info) Description 07/02/2011 8:30 AM CDT - 07/02/2011 11:59 PM CDT Hospital Encounter [facility] [place] A [address] [place] [address] [facility], External Provider [address] [place] [address] Discharge Disposition: Home or Self Care Social [...] Associated Diagnosis Comments MAMMO PRIOR STUDY Routine 07/02/2011 8:3 0 AM CDT Follow up documented in this encounter Results * MAMMO PRIOR STUDY (07/02/2011 8:30 AM CDT) Narrative Cheryl Tovar, RT - 03/03/2016 8:30 AM CDT This exam was auto finalized to allow images to be scanned to PACS. External Provider [facility] DIAGNOSTIC IMAGI NG ORDERABLES documented in this encounter Visit Diagnoses Diagnosis Follow up documented in this encounter
--- OUTSIDE RECORDS SUMMARY | 2024-11-13 21:53 | XMS_ITS | Encounter Summary ---
Author Organization [facility] Address [address] [place] [address] Care Team Providers Care Grill Associate Name Role Phone Ok Lujan MD Primary Care Provider [phone]- [phone] Encounter Details Date Type Department Care Team (Late st Contact Info) Description 11/23/2013 Abstract [facility] BREAST SURGERY - [place] [address] [place] [address] Ok Lujan MD [address] [place] [phone] Social History Tobacco Use Types Packs/Day Years [...] Comments MAMMO BREAST US RT COMPLETE Routine 02/16/2013 MAMMO SCREEN BILAT W OR WO CAD Routine 01/28/2013 MAMMO BREAST US RT COMPLETE Routine 07/02/2011 MAMMO DIAGNOSTIC UNI RIGHT W OR WO CAD Routine 04/02/2011 MAMMO SCREEN BILAT W OR WO CAD Routine 03/21/2011 MAMMO DIAGNOSTIC UNI RIGHT W OR WO CAD Routine 12/05/2009 documented in this encounter Results * MAMMO BREAST US RT (02/16/2013) Anatomical Region Laterality Modality Breast Right Other Ok Lujan MD MAMMO ORDERABLES * (ABNORMAL) MAMMO DIGITAL SCREEN BILAT (01/28/2013) Anatomical Region Laterality Modality Breast Bilateral Other Ok Lujan MD MAMMO ORDERABLES * MAMMO BREAST US RT (07/02/2011) Anatomical Region Laterality Modality Breast Right Other Ok Lujan MD MAMMO ORDERABLES * MAMMO DIGITAL DIAG UNI RIGHT (04/02/2011) Anatomical Region Laterality Modality Breast Right Other Ok Lujan MD MAMMO ORDERABLES * (ABNORMAL) MAMMO DIGITAL SCREEN BILAT (03/21/2011) Anatomical Region Laterality Modality Breast Bilateral Other Ok Lujan MD MAMMO ORDERABLES * MAMMO DIGITAL DIAG UNI RIGHT (12/05/2009) Anatomical Region Laterality Modality Breast Right Other Alejandro Rodriguez MD MAMMO ORDERABLES documented in this encounter Visit Diagnoses Not on filedocumented in this encounter Care Teams Grill Associate Relationship Specialty Start Date End Date Ok Lujan MD [address] [place] [address] PCP - General Family Practice 11/13/13 documented as of this encounter
--- OUTSIDE RECORDS SUMMARY | 2024-11-13 21:54 | XMS_ITS | Encounter Summary ---
Author Organization [facility] Address [address] [place] [address] Care Team Providers Care Aerobics Teacher Name Role Phone Ok Lujan MD Primary Care Provider +1 [phone] Encounter Details Date Type Department Care Team (Latest Contact Info) Description 07/16/2009 Outpatient Historical [facility] [address] [place] [address] Other and Unspecified Ovarian Cyst Social History Tobacco Use Types Packs/Day Years Used Date Smoking Tobacco: Never Assessed Sex and Gender Information Value Date Recorded Sex Assigned at Not on file Gender Identity Not on file Sexual Orientation Not on file documented as of this encounter Plan of Treatment Not on file documented as of this encounter Procedures Procedure Name Priority Date/Time Associated Diagnosis Comments PATHOLOGY Routine 07/18/2009 1:30 PM CDT POC , URINE Routine 07/18/2009 9:00 AM CDT documented in this encounter Results * PATHOLOGY (07/18/2009 1:30 PM CDT) FINAL REPORT ?[facility] ?[address] ? [place], [place] ??[id number] ? Patient: ??GILLES OSORIO S ? : ??1970 ? Procedure Date: ??07/18/2009 ? Accession Date: ??07/18/2009 ? Case No: ??[id number] ? Ordering Dr: ??ALEJANDRO MEJIA ? Case type SW is performed by [place], [place], [place]; ? all other case types are performed by [facility] [place], ? [place] ?SURGICAL PATHOLOGY & NON-GYNECOLOGIC CYTOPATHOLOGY REPORT ? DIAGNOSIS ? OVARY, LEFT, SALPINGO-OOPHORECT REAGAN: ? - HEMORRHAGIC CORPUS LUTEUM CYST. ? - FOLLICLE CYSTS. ? FALLOPIAN TUBE, LEFT, SALPINGO-OOPHORECT REAGAN: ? - NO PATHOLOGIC DIAGNOSIS. ? Specimen Description: ? Left tube and ovary. ? Operative Procedure: ? Laparoscopy, left salpingo-oophorect reagan. ? Patient Information/Histor y/Diagnosis: ? Chronic and acute left lower quadrant pain. ? Gross: ? Received in one container labeled ??Osorio Campoverde., left tube and ovary is a ? 4.3 x 2.2 x 1.1-cm ovary with a focally attached 7.2-cm long x 0.5-cm in ? diameter fimbriated fallopian tube. The surface of the ovary is pink-nieves ? and disrupted with adherent blood clot. Sectioning demonstrates multiple ? cysts ranging from 0.1 cm to 1.5 cm in greatest dimension. The largest cyst ? is hemorrhagic and collapsed. The inner lining of each cyst is smooth and ? uniform. The surface of the fallopian tube is red and glistening. ? Sectioning demonstrates a pinpoint lumen. Snap Attacher sections are ? submitted in blocks A1 through A3. ? MMC/TMZ 07.18.2009 03:54 pm ? Microscopic: ? The slides are labeled [id number] and Osorio Campoverde. ? Histologic sections of the left ovary reveal a hemorrhagic corpus luteum ? cyst, several follicle cysts, a corpus albicans, and scattered benign ? epithelial inclusion glands. There is organizing blood clot adherent to the ? outer ovarian surface. The corresponding fallopian tube is unremarkable, ? except for congestion of the mesosalpinx. ? GL/PHC 07.22.2009 08:05 am ? Staging Form: ? No. ? ELECTRONIC SIGNATURE FOR HEENA SEGOVIA M.D.- 07/22/09 02:37 pm [facility] 07/18/2009 1:30 PM CDT Alejandro Mejia MD PATHOLOGY/CYTOLOGY O RDERABLES Performing Organization Address [facility] Co de Phone Number [facility] CLIA# [id number] [address] [place] [address] * POC , URINE (07/18/2009 9:00 AM CDT) CLIA LICENSE [id number] [facility] , URINE POC Negative Negative [facility] Urine specimen (specimen) 07/18/2009 9:00 AM CDT 07/18/2009 9:00 AM CDT Alejandro Mejia MD POINT OF CARE TESTIN G Performing Organization Address [facility] Co de Phone Number [facility] CLIA# [id number] [address] [place] [address] documented in this encounter Visit Diagnoses Diagnosis Other and unspecified ovarian cyst documented in this encounter Care Teams Aerobics Teacher Relationship Specialty Start Date End Date Ok Lujan MD [address] [place] [phone] PCP - General Family Practice 11/13/13 documented as of this encounter
--- OUTSIDE RECORDS SUMMARY | 2024-11-13 21:54 | XMS_ITS | Encounter Summary ---
Author Organization [facility] Address [address] [place] [address] Care Team Providers Care Physical Therapy Resident Name Role Phone Unavailable Primary Care Provider Unavailabl e Encounter Details Date Type Department Care Team (Latest Contact Info) Description 12/05/2009 7:55 AM HANDHOLE MACHINE OPERATOR - 12/05/2009 11:59 PM HANDHOLE MACHINE OPERATOR Hospital Encounter [facility] [place] A [address] [place] [phone] [facility], External Provider [address] [place] [address] Discharge Disposition: Home or Self Care Social [...] Diagnosis Comments MAMMO PRIOR STUDY Routine 12/05/2009 7:5 5 AM HANDHOLE MACHINE OPERATOR Follow up documented in this encounter Results * MAMMO PRIOR STUDY (12/05/2009 7:55 AM HANDHOLE MACHINE OPERATOR) Narrative Cheryl Tovar, RT - 03/03/2016 7:53 AM CDT This exam was auto finalized to allow images to be scanned to PACS. External Provider [facility] DIAGNOSTIC IMAGI NG ORDERABLES documented in this encounter Visit Diagnoses Diagnosis Follow up documented in this encounter
--- OUTSIDE RECORDS SUMMARY | 2024-11-13 21:54 | XMS_ITS | Encounter Summary ---
Author Organization [facility] Address [address] [place] [address] Care Team Providers Care Vendor Management Consultant Name Role Phone Unavailable Primary Care Provider Unavailabl e Encounter Details Date Type Department Care Team (Latest Contact Info) Description 10/12/2009 8:35 AM TANNING WHEEL OPERATOR - 10/12/2009 11:59 PM TANNING WHEEL OPERATOR Hospital Encounter [facility] [place] A [address] [place] [phone] [facility], External Provider [address] [place] [address] Discharge Disposition: Home or Self Care Social [...] Associated Diagnosis Comments MAMMO PRIOR STUDY Routine 10/12/2009 8:3 5 AM TANNING WHEEL OPERATOR Follow up documented in this encounter Results * MAMMO PRIOR STUDY (10/12/2009 8:35 AM TANNING WHEEL OPERATOR) Narrative Cheryl Tovar, RT - 03/03/2016 8:34 AM CDT This exam was auto finalized to allow images to be scanned to PACS. External Provider [facility] DIAGNOSTIC IMAGI NG ORDERABLES documented in this encounter Visit Diagnoses Diagnosis Follow up documented in this encounter
--- OUTSIDE RECORDS SUMMARY | 2024-11-13 21:54 | XMS_ITS | Encounter Summary ---
Author Organization [facility] Address [address] [place] [address] Care Team Providers Care Project Crew Worker Name Role Phone Unavailable Primary Care Provider Unavailabl e Encounter Details Date Type Department Care Team (Latest Contact Info) Description 07/16/2009 Orders Only HIS CONVERSION Conversion, History Social History Tobacco Use Types Packs/Day Years Used Date Smoking Tobacco: Never Assessed Sex and Gender Information Value Date Recorded Sex Assigned at Not on file Gender Identity Not on file Sexual Orientation Not on file documented as of this encounter Progress Notes * Conversion, History - 07/29/2009 6:[address] [address] cc: Nadia Xiao M.D. Alejandro Rodriguez MD SURGEON Alejandro Rodriguez MD PREOPERATIVE DIAGNOSIS 1. Pelvic pain. 2. Left ovarian hemorrhagic cyst. POSTOPERATIVE DIAGNOSIS Ruptured left ovarian hemorrhagic cyst. OPERATION NAME Laparoscopic salpingo-oophorectomy. ANESTHESIA General endotracheal. PRODUCT STRATEGY DIRECTOR Nadia Xiao M.D., PGY COMPLICATIONS None. ESTIMATED BLOOD LOSS Minimal. FINDINGS Normal uterus, and right tube and ovary. Left ovary was covered in dark brown blood, approximately 300 mL of dark brown blood located in the posterior cul-de- sac. TECHNIQUE The patient was taken to the operating room where general anesthesia was obtained without difficulty. The patient was then examined under anesthesia and found to have a small anteverted uterus with normal adnexa. She was then placed in the dorsolithotomy position and prepared and draped in the usual sterile fashion. A bivalve speculum placed in the patient's vagina and the anterior lip of the cervix grasped with a single-tooth tenaculum. A Hujoannka uterine manipulator was then advanced into the uterus to provide a means to manipulate the uterus, but secondary to her small uterus the manipulator could not be secured and was thus removed. The speculum was removed from the vagina. Attention was then turned to the patient's abdomen where an approximately 7 mm vertical skin incision was made in the umbilical fold. Blunt dissection using a finger was then carried down to the fascia. The round ligament of the liver was then grasped with an Allis clamp, and Becker scissors were then used to incise the fascia and carefully advance into the peritoneal cavity. The trocar and sleeve were then advanced without difficulty into the abdomen and pneumoperitoneum was then obtained with CO2 gas. A laparoscope was then placed through the trocar, where intra-abdominal placement was then confirmed. Second skin incision was made in the left lower quadrant, and a second trocar and sleeve were then advanced under direct visualization. A survey of the patient's pelvis and abdomen revealed entirely normal anatomy. The left ovary was noted to be covered in dark brown blood, approximately 300 mL of dark brown and clotted blood were noted in the posterior cul-de-sac. The third skin incision was then made in the right lower quadrant, and a third trocar and sleeve were advanced under direct visualization. A suction defence intelligence analyst was then advanced through the sleeve of the right lower quadrant. The pelvis was copiously irrigated and was then suctioned. The blood located in the posterior cul-de-sac was also suctioned, the much of this blood was found to be adherent to the posterior surface of the uterus and uterosacral ligaments, and no further manipulation of the sites was performed. Attention was then turned to the left tube and ovary, which at that time was decided that removal of these structures would be in the best interest of the patient. Atraumatic grasper was then placed through the right lower quadrant on a sleeve, and the right tube and ovary were grasped and elevated. A Gyrus instrument was inserted through the left lower quadrant sleeve, and using the Bovie settings, the left tube and ovary were cut and cauterized above the infundibulopelvic ligaments and utero-ovarian ligaments. Good hemostasis was noted. The left tube and ovary were then removed from the pelvis through the right lower quadrant incision without difficulty. A final survey of the patient's pelvis and abdomen was then done. The instruments were then removed from the patient's abdomen, and the incisions were repaired with 4-0 Vicryl. The patient tolerated the procedure well. Sponge, lap and needle counts were correct x2. The patient was taken to the recovery room in stable condition. [id number] Dictated by: Nadia Xiao M.D. Approved by: Alejandro Rodriguez MD Result Type: OPERATIVE REPORT Result Date: July 22, 2009 05:30 PM Result Status: UNREVIEWED * Conversion, History - 07/29/2009 6:[address] [address] cc: Alejandro Rodriguez MD B The patient to have surgery on at 11:00 on the . A 38-year-old 2, para 2, presents with diarrhea and pain in the rectal area since Wednesday. The patient was seen in the emergency room. The beta hCG was negative. The patient had an ultrasound showing fluid in the cul-de-sac and some small 2- to 3-cm cysts which appeared hemorrhagic by ultrasound. The measured 3.5 x 2.8. CA 125 was within normal limits. The patient had continued pain and was very tender on exam. Cultures were negative. MEDICATIONS 1. Claritin. 2. Verapamil. ALLERGIES None. REVIEW OF SYSTEMS No urine or bowel complaints. PHYSICAL VITAL SIGNS: Weight 165, blood pressure 132/82. LUNGS: Clear. HEART: Regular. PELVIC EXAM: Normal external genitalia. Cervix was clean. There was tenderness to left adnexa and fullness. Ultrasound confirms hemorrhagic-appearing cyst with fluid in the cul-de-sac. ASSESSMENT Continued chronic and acute left lower quadrant pain, history of ovarian cyst, normal CA 125. PLAN Laparoscopy, possible salpingo-oophorectomy. Repeat section. [id number] Dictated by: Alejandro Rodriguez MD Alejandro Rodriguez, Date/Time No Change Surgeon Initials Or Date/Time Changes Surgeon Initials Result Type: HISTORY AND PHYSICAL Result Date: July 16, 2009 03:34 PM Result Status: UNREVIEWED documented in this encounter Plan of Treatment Not on file documented as of this encounter Visit Diagnoses Not on filedocumented in this encounter
--- OUTSIDE RECORDS SUMMARY | 2024-11-13 21:54 | XMS_ITS | Encounter Summary ---
Author Organization [facility] Address [address] [place] [address] Care Team Providers Care Container Crane Operator Name Role Phone Unavailable Primary Care Provider Unavailabl e Encounter Details Date Type Department Care Team (Latest Contact Info) Description 01/26/2008 8:35 AM HOME HEALTH CARE PHYSICIAN - 01/26/2008 11:59 PM HOME HEALTH CARE PHYSICIAN Hospital Encounter [facility] [place] [address] [place] [id number] [facility], External Provider [address] [place] [address] Discharge Disposition: Home or Self Care Social [...] Associated Diagnosis Comments MAMMO PRIOR STUDY Routine 01/26/2008 8:3 5 AM HOME HEALTH CARE PHYSICIAN Follow up documented in this encounter Results * MAMMO PRIOR STUDY (01/26/2008 8:35 AM HOME HEALTH CARE PHYSICIAN) Narrative Cheryl Tovar, RT - 03/03/2016 8:36 AM CDT This exam was auto finalized to allow images to be scanned to PACS. External Provider [facility] DIAGNOSTIC IMAGI NG ORDERABLES documented in this encounter Visit Diagnoses Diagnosis Follow up documented in this encounter
--- OUTSIDE RECORDS SUMMARY | 2024-11-13 21:54 | XMS_ITS | Encounter Summary ---
Author Organization [facility] Address [address] [facility] Attn: [place] [address] Care Team Providers Care Geology Faculty Member Name Role Phone Ok Lujan MD Primary Care Provider [phone] Encounter Details Date Type Department Care Team (Late st Contact Info) Description 10/13/1996 Outpatient Historical Conversion, [place] [address] [place] [address] Social History Tobacco Use Types Packs/Day Years Used Date Smoking Tobacco: Never Assessed Sex and Gender Information Value Date Recorded Sex Assigned at Not on file Gender Identity Not on file Sexual Orientation Not on file documented as of this encounter Plan of Treatment Not on file documented as of this encounter Visit Diagnoses Not on filedocumented in this encounter Care Teams Geology Faculty Member Relationship Specialty Start Date End Date Ok Lujan MD [address] [place] [address] PCP - General Family Practice 11/13/13 documented as of this encounter
--- OUTSIDE RECORDS SUMMARY | 2024-11-13 21:54 | XMS_ITS | Encounter Summary ---
Author Organization [facility] Address [address] [place] [address] Care Team Providers Care Biomass Production Manager Name Role Phone Unavailable Primary Care Provider Unavailabl e Encounter Details Date Type Department Care Team (Latest Contact Info) Description 02/09/2008 8:40 AM CDT - 02/09/2008 11:59 PM CDT Hospital Encounter [facility] [place] [facility] [address] [place] [address] [facility], External Provider [address] [place] [address] Discharge Disposition: Home or Self Care Social [...] Associated Diagnosis Comments MAMMO PRIOR STUDY Routine 02/09/2008 8:4 0 AM CDT Follow up documented in this encounter Results * MAMMO PRIOR STUDY (02/09/2008 8:40 AM CDT) Narrative Cheryl Tovar, RT - 03/03/2016 8:38 AM CDT This exam was auto finalized to allow images to be scanned to PACS. External Provider [facility] DIAGNOSTIC IMAGI NG ORDERABLES documented in this encounter Visit Diagnoses Diagnosis Follow up documented in this encounter
== END 2024-11-10 14:35 | disposition home or self-care (01) ==
LOC: ANHPFT 14:35
PROVIDERS: PCP Family Medicine; Visit Provider Family Medicine
DX: R06.09 Other forms of dyspnea (principal); J45.909 Unspecified asthma, uncomplicated
CPT/HCPCS: 94060; 94726; 94729

== ENCOUNTER 2024-11-28 08:26 | Outpatient (CLI) | payer OTHER, SELFPAY ==
--- NOTE | ~2024-11-28 | MM_ITS ---
EXAMINATION: MM screening kamila BI w alma HISTORY: Screening mammogram TECHNIQUE: Craniocaudal and mediolateral oblique 3-D tomosynthesis images were obtained and synthetic 2-D images were generated. CAD analysis was submitted and interpreted. COMPARISON: 10/22/2020, 10/01/2020, 05/18/2019 BREAST PARENCHYMAL COMPOSITION:Not Dense. There are scattered areas of fibroglandular density. FINDINGS: No suspicious mass, calcification, or architectural distortion are identified in either kaleigh ast to suggest malignancy. There has been no suspicious interval change. IMPRESSION: No mammographic evidence of malignancy. Recommend routine screening mammography in one year. BI-RADS Category 1: Negative Reviewed, dictated and finalized at location . DRY MOLDER
== END 2024-11-28 08:27 | disposition home or self-care (01) ==
LOC: MICIMG 08:27
PROVIDERS: PCP Family Medicine; Visit Provider Family Medicine
DX: Z12.31 Encounter for screening mammogram for malignant neoplasm of breast (principal)
CPT/HCPCS: 77063; 77067

== ENCOUNTER 2024-12-05 08:26 | Outpatient (CLI) | payer OTHER, SELFPAY ==
--- NOTE | 2024-12-05 09:00 | EST_ITS ---
Patient Info Name: Jumana Campoverde Age: 54 years : 1970 Gender: Female Ht: 65 in Wt: 171 lbs BSA: 1.91 m2 HR: 65 bpm BP: 164 / 97 mmHg Heart Rhythm: Sinus Rhythm Technical Quality: Good Exam Date: 12/05/2024 10:02 AM Exam Location: Echo Lab Patient Status: Outpatient Admit Date: 12/05/2024 Staff Ordering Physician: Dl Hernandez MD Brick Loader: Naz Quevedo RDCS Attending Provider: [facility] Referring Physician: Mary EDMONDSON; Exercise Technologist: Kathy Elmore CT Exercise Physician: DALLAS Exam Type: CA stress echo Study Info Indications R06.09 - Other forms of dyspnea Treadmill exercise stress echocardiogram is performed. Summary 1. Stress echocardiogram is normal. Left Ventricle The function appears to be normal with an EF of 55-60%. Right Ventricle RV appears to contract normally and appears to be of normal size. Left Atria Left atrium appears to be of normal sinus. Right Atria Right atrium appears to be normal. Protocol: Sunil Stress ECG Details Stage: REST Duration (min): 5 min : 2 sec Speed (mph): 0.0 Grade (%): 0 HR (bpm): 67 SBP (mmHg): --- DBP (mmHg): --- METS: --- Stage: REST Duration (min): 47 min : 50 sec Speed (mph): 0.0 Grade (%): 0 HR (bpm): 75 SBP (mmHg): 164 DBP (mmHg): 97 METS: --- Stage: STAGE 1 Duration (min): 1 min : 0 sec Speed (mph): 1.7 Grade (%): 10 HR (bpm): 102 SBP (mmHg): 164 DBP (mmHg): 97 METS: --- Stage: STAGE 1 Duration (min): 2 min : 0 sec Speed (mph): 1.7 Grade (%): 10 HR (bpm): 113 SBP (mmHg): 164 DBP (mmHg): 97 METS: --- Stage: STAGE 1 Duration (min): 3 min : 0 sec Speed (mph): 1.7 Grade (%): 10 HR (bpm): 110 SBP (mmHg): 164 DBP (mmHg): 97 METS: --- Stage: STAGE 2 Duration (min): 1 min : 0 sec Speed (mph): 2.5 Grade (%): 12 HR (bpm): 126 SBP (mmHg): 199 DBP (mmHg): 117 METS: --- Stage: STAGE 2 Duration (min): 2 min : 0 sec Speed (mph): 2.5 Grade (%): 12 HR (bpm): 135 SBP (mmHg): 121 DBP (mmHg): 96 METS: --- Stage: STAGE 2 Duration (min): 3 min : 0 sec Speed (mph): 2.5 Grade (%): 12 HR (bpm): 141 SBP (mmHg): 121 DBP (mmHg): 96 METS: --- Stage: STAGE 3 Duration (min): 1 min : 0 sec Speed (mph): 3.4 Grade (%): 14 HR (bpm): 152 SBP (mmHg): 140 DBP (mmHg): 99 METS: --- Stage: STAGE 3 Duration (min): 1 min : 0 sec Speed (mph): 3.4 Grade (%): 14 HR (bpm): 152 SBP (mmHg): 140 DBP (mmHg): 99 METS: --- Stage: RECOVERY Duration (min): 0 min : 59 sec Speed (mph): 0.0 Grade (%): 0 HR (bpm): 152 SBP (mmHg): 140 DBP (mmHg): 99 METS: --- Stage: RECOVERY Duration (min): 1 min : 59 sec Speed (mph): 0.0 Grade (%): 0 HR (bpm): 156 SBP (mmHg): 140 DBP (mmHg): 99 METS: --- Stage: RECOVERY Duration (min): 2 min : 59 sec Speed (mph): 0.0 Grade (%): 0 HR (bpm): 95 SBP (mmHg): 186 DBP (mmHg): 96 METS: --- Stage: RECOVERY Duration (min): 3 min : 59 sec Speed (mph): 0.0 Grade (%): 0 HR (bpm): 85 SBP (mmHg): 186 DBP (mmHg): 96 METS: --- Stage: RECOVERY Duration (min): 4 min : 59 sec Speed (mph): 0.0 Grade (%): 0 HR (bpm): 89 SBP (mmHg): 164 DBP (mmHg): 94 METS: --- Stage: RECOVERY Duration (min): 5 min : 5 sec Speed (mph): 0.0 Grade (%): 0 HR (bpm): 93 SBP (mmHg): 164 DBP (mmHg): 94 METS: --- Rest HR: 75 bpm Peak HR: 156 bpm Rest Sys BP: 164 mmHg Peak Sys BP: 199 mmHg Max Pred HR: 164 bpm % Max Pred HR: 95 % Target HR: 139 bpm Max RPP: 31,044 bpm*mmHg Sotelo Score: [address] Seg Deviation: -0.90 mm Total Time: 7 min : 0 sec Rest Vasques BP: 97 mmHg Peak Vasques BP: 117 mmHg Angina Score: None Total METS: 8.9 Resting ECG Normal sinus rhythm normal EKG. Stress ECG Patient exercised for 7 minutes and 30 seconds. Peak heart rate was 156 which is over 85% of max predicted. Blood pressure was high at the beginning 164/97 and it appeared to go to 140/[address] No [address] changes of ischemia were noted. Report Signatures Stress ECG Echo
== END 2024-12-05 08:27 | disposition home or self-care (01) ==
LOC: ANHCARD 08:27
PROVIDERS: PCP Family Medicine; Visit Provider Family Medicine
DX: R06.09 Other forms of dyspnea (principal)
CPT/HCPCS: 93351

== ENCOUNTER 2024-12-21 14:52 | Outpatient (CLI) | payer OTHER, SELFPAY ==
--- NOTE | ~2024-12-21 | US_ITS ---
EXAM: PELVIC ULTRASOUND HISTORY: post menopausal bleeding . Patient describes an oophorectomy, but unsure which side this was performed. 4 para 3 COMPARISON: 07/05/2009. FINDINGS: UTERUS: 6.1 x 2.9 x 3.6 cm. The uterus is heterogeneous in echogenicity. A subtle avascular focus of decreased echogenicity is identified within the fundus of the uterus, to the left of midline, possibly representing a uterine fibroid measuring 7 x 5 x 5 mm. The endometrial complex is not thickened and measures 2.3 mm. Despite prolonged interrogation, neither ovary was visualized. No free fluid is identified within the pelvis. IMPRESSION: Heterogeneous uterus with a subcentimeter avascular focus of decreased echogenicity, possibly a uteri ne fibroid. Despite prolonged interrogation, neither ovary was visualized. Based on the 2008 ultrasound examination it was likely the left ovary which was removed, as it measur ed nearly 10 cm in size at that time. Reviewed, dictated and finalized at location A. INE CASTINGS PLASTERER IMPRESSION: Heterogeneous uterus with a subcentimeter avascular focus of decreased echogeni city, possibly a uterine fibroid. Despite prolonged interrogation, neither ovary was visualized. Based on the 2008 ultrasound examination it was likely the left ovary which was removed, as it measured nearly 10 cm in size at that time.
== END 2024-12-21 14:53 | disposition home or self-care (01) ==
LOC: MICIMG 14:52
PROVIDERS: PCP Family Medicine; Visit Provider Family Medicine
DX: R93.89 Abnormal findings on diagnostic imaging of other specified body structures (principal); N95.0 Postmenopausal bleeding
CPT/HCPCS: 76830; 76856

== ENCOUNTER 2024-12-22 07:21 | Outpatient (CLI) | payer OTHER, SELFPAY ==
--- NOTE | ~2024-12-22 | DEXA_ITS ---
Bone Density Report Name: OSORIO FAULKNER Age: 54 Sex: Female Ethnicity: White Date of : 1970 Indication: postmenopausal; screening for osteoporosis; asthma or emphysema; Referring Provider: KALINA WISDOM Study: Bone densitometry was performed. Exam Date: December 22, 2024 Accession number: [id number] Bone Density: Region BMD T-score Z-score Classification AP Spine(L1-L4) 0.888 -1.4 -0.3 Osteopenia Femoral Neck (Left) 0.586 -2.4 -1.3 Osteopenia Total Hip (Left) 0.779 -1.3 -0.6 Osteopenia Femoral Neck (Right) 0.682 -1.5 -0.4 Osteopenia Total Hip (Right) 0.795 -1.2 -0.5 Osteopenia Total Hip Mean 0.787 -1.3 -0.6 Osteopenia World Health Organization criteria for BMD impression classify patients as: Normal (T-score at or above -1.0), Osteopenia (T-score between -1.0 and -2.5), or Osteoporosis (T-score at or below -2.5). 10-year Fracture Risk(1): Major Osteoporotic Fracture 9.1% Hip Fracture 1.4% Reported Risk Factors: [place] (), Neck BMD=0.586, BMI=28.0 (1) FRAX(R) Version 3.08. Fracture probability calculated for an untreated patient. Fracture probability may be lower if the patient has received treatment. Clinical Information Provided by Patient: Has used the following medications: Vitamin D Has the following medical conditions: Asthma or Emphysema Patient maximum height was 66 Menopause Age: 49 Drinks caffeinated beverages Onset of menses at age 13 Number of children 3 Impression: The patient has low bone mass, based on the Left Femoral Neck T-score. The patient has an estimated ten-year risk of hip fracture of 1.4% and an estimated ten-year risk of major fracture of 9.1%, based on the WHO FRAX algorithm. Discussion: BONE DENSITY IS LOW AT ONE OR MORE SKELETAL SITES. This patient's lowest T-score is low at one or more skeletal sites. It meets the World Health Organization's (WHO) criteria for ?low bone mass? (T-score between -1.0 and -2.5). The patient's 10-year risk of fracture as calculated by FRAX is less than the threshold where pharmacological therapy is recommended by the National Osteoporosis Foundation (NOF). However, all treatment decisions require clinical judgment and consideration of individual patient factors, including patient preferences, comorbidities, previous drug use, risk factors not captured in the FRAX model (e.g., frailty, falls, vitamin D deficiency, increased bone turnover, interval significant decline in bone density) and possible under or overestimation of fracture risk by FRAX. The patient should follow a healthful lifestyle (good nutrition with adequate calcium and vitamin D, and appropriate weight-bearing exercise). Follow-Up: Consider repeating this study in 2 to 3 years to reassess this patient's status, or sooner if there is some new clinical indication. Reported by: KOMAL on 12/22/2024 7:56:00 AM. Reviewed, dictated and finalized at location ACherelle BEAL
== END 2024-12-22 07:22 | disposition home or self-care (01) ==
LOC: ANHIMG 07:22
PROVIDERS: PCP Family Medicine; Visit Provider Family Medicine
DX: Z78.0 Asymptomatic menopausal state (principal); M85.89 Other specified disorders of bone density and structure, multiple sites
CPT/HCPCS: 77080

== ENCOUNTER 2025-05-09 12:29 | Outpatient (CLI) | payer OTHER, SELFPAY ==
--- NOTE | ~2025-05-09 | XR_ITS ---
EXAMINATION: XR tibia fibula RT 2V, XR ankle RT 2V DATE: 05/09/2025 12:42 INDICATION: Right ankle pain TECHNIQUE: 1. Anteroposterior and lateral views of the right lower leg were obtained. 2. Anteroposterior and lateral views of the right ankle were obtained. COMPARISON: None. FINDINGS: Bone alignment is normal. No fractures identified. Small corticated ossicle dorsal to the talonavicul ar articulation which could represent either a developmental os supra naviculare or heterotopic ossic le related to old trauma. Tiny enthesophyte and small enthesopathic ossification at the calcaneal ins ertion of the distal Achilles tendon. Soft tissues are unremarkable with no ankle joint effusion. IMPRESSION: 1. No acute osseous abnormality. Reviewed, dictated and finalized at location A. IMPRESSION: 1. No acute osseous abnormality.
== END 2025-05-09 12:30 | disposition home or self-care (01) ==
LOC: MICIMG 12:30
PROVIDERS: PCP Family Medicine; Visit Provider Student in an Organized Health Care Education/Training Program
DX: M79.661 Pain in right lower leg (principal); M25.571 Pain in right ankle and joints of right foot
CPT/HCPCS: 73590; 73600

== ENCOUNTER 2025-05-16 14:16 | Outpatient (CLI) | payer OTHER, SELFPAY ==
--- NOTE | ~2025-05-16 | US_ITS ---
EXAMINATION: US venous doppler LE RT DATE: 05/16/2025 14:51 INDICATION: Right lower limb pain, swelling and erythema TECHNIQUE: Grayscale ultrasound images without and with compression and Doppler ultrasound images of the right lower extremity veins were obtained. COMPARISON: None. FINDINGS: The visualized portions of right common femoral vein, profunda (deep) femoral vein, femoral vein, pop liteal vein, peroneal trunk, posterior tibial veins, peroneal veins, gastrocnemius vein and greater s aphenous vein outflow are patent. IMPRESSION: 1. No deep venous thrombosis in the right lower limb. Reviewed, dictated and finalized at location A.
--- OUTSIDE RECORDS SUMMARY | 2025-05-16 16:13 | XMS_ITS | CONTINUITY OF CARE DOCUMENT ---
Author Name heavenly burdick Address Unknown Organization [facility] Address [address] [place] [address] [address] [place] [address] Phone [phone] Care Team Providers Care Captain Airline Pilot Name Role Phone Paramjit Mcallister MD Unavailable Paramjit Mcallister MD Unavailable INSURANCE PROVIDERS Payer name Policy type / Coverage type [employer] ID [id number] PAY
== END 2025-05-16 14:17 | disposition home or self-care (01) ==
PROVIDERS: PCP Family Medicine; Visit Provider Nurse Practitioner Family
DX: M79.89 Other specified soft tissue disorders (principal)
CPT/HCPCS: 93971

== ENCOUNTER 2025-06-10 15:51 | Emergency (ER) | payer OTHER, SELFPAY ==
--- OUTSIDE RECORDS SUMMARY | 2025-06-10 15:53 | XMS_ITS | Clinical Summary ---
Author Organization [facility] Address [address] [place] [address] Care Team Providers Care Toolsmith Name Role Phone Ok Lujan MD Primary Care Provider [phone] Allergies No known active allergies Medications lisinopril (PRINIVIL) 10 mg tabletIndication s:Breast lump Take 10 mg by mouth daily. Active fexofenadine (SANYA) 180 mg tabletIndication s:Breast lump Take 180 mg by mouth daily. Active frovatriptan (FROVA) 2.5 mg TabletIndication s:Breast lump Take 2.5 mg by mouth every 2 hours as needed. may repeat in 2 hours; max dose 7.5mg in 24 hours Active Active Problems Patient Care Coordination No te Formatting of this note migh t be different from the original. 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 Gender Identity Not on file Sexual Orientation Not on file Occupation Industry Job Start Date Job End Date Not on file Not on file Not on file Not on file Last Filed Vital Signs Vital Sign Reading Time Taken Comments Blood Pressure 127/82 02/26/2015 3:27 PM CDT Pulse 68 02/26/2015 3:27 PM CDT Temperature - - Respiratory Rate - - Oxygen Saturation - - Inhaled Oxygen Concentration - - Weight 74.3 kg (163 lb 12.8 oz) 02/26/2015 3:27 PM CDT Height 167.6 cm (5' 6) 02/26/2015 3:27 PM CDT Body Mass Index 26.44 02/26/2015 3:27 PM CDT Plan of Treatment Health Maintenance Due Date Last Done Comments DTAP/TDAP/TD VACCINES (1 - Tdap) 1987 HEPATITIS B VACCINES (1 of 3 - 19+ 3-dose series) 1987 HPV/Cotest (21-29) 1989 CERVICAL CANCER SCREENING 1998 HPV/Cotest (30-65) 1998 PAP SMEAR 1998 COLORECTAL SCREENING 2013 Colorectal Cancer Screening 2013 FIT-DNA Q 3 years 2013 FIT/FOBT Q 1 year 2013 Flex Sig/CT Colonography Q 5 years 2013 BREAST CANCER SCREENING 03/10/2017 03/10/20 16, 02/27/2016, 02/09/2015, Additional history exists ZOSTER VACCINE (1 of 2) 2018 INFLUENZA VACCINE (#1) 2025 Procedures Procedure Name Priority Date/Time Associated Diagnosis [...] ASSESSMENT: BI-RADS category 2 - Benign findings Narrative 03/11/2016 [...] ASSESSMENT: BI-RADS category 2 - Benign findings us Bethany Casey MD MAMMO ORDERABLES Final Resul t from Last 3 Months or Most Recently Relevant to Health Maintenance Insurance [facility] BLUE ACCESS/TRUE BLUE PPO Care Teams Toolsmith Relationship Specialty Start Date End Date Ok Lujan MD [address] [place] [address] PCP - General Family Practice 11/13/13
--- OUTSIDE RECORDS SUMMARY | 2025-06-10 15:53 | XMS_ITS | Encounter Summary ---
Author Organization [facility] Address 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 Gender Identity Not on file Sexual Orientation Not on file documented as of this encounter Plan of Treatment Not on file documented as of this encounter Procedures Procedure Name Priority Date/Time Associated Diagnosis Comments PATHOLOGY Routine 07/18/2009 1:30 PM CDT POC , URINE Routine 07/18/2009 9:00 AM CDT documented in this encounter Results * PATHOLOGY (07/18/2009 1:30 PM CDT) FINAL REPORT [facility] [address] [place], [place] [address] Patient: OSORIO FAULKNER Amada : 1970 Procedure Date: 07/18/2009 Accession Date: 07/18/2009 Case No: [id number] Ordering Dr: ALEJANDRO MEJIA Case type SW is performed by [facility], [place], [place]; all other case types are performed by [facility], [place], [place] SURGICAL PATHOLOGY & NON-GYNECOLOGIC CYTOPATHOLOGY REPORT DIAGNOSIS OVARY, LEFT, SALPINGO-OOPHORECT REAGAN: - HEMORRHAGIC CORPUS LUTEUM CYST. - FOLLICLE CYSTS. FALLOPIAN TUBE, LEFT, SALPINGO-OOPHORECT REAGAN: - NO PATHOLOGIC DIAGNOSIS. Specimen Description: Left tube and ovary. Operative Procedure: Laparoscopy, left salpingo-oophorect reagan. Patient Information/Histor y/Diagnosis: Chronic and acute left lower quadrant pain. Gross: Received in one container labeled Osorio Faulkner., left tube and ovary is a 4.3 x 2.2 x 1.1-cm ovary with a focally attached 7.2-cm long x 0.5-cm in diameter fimbriated fallopian tube. The surface of the ovary is pink-nieves and disrupted with adherent blood clot. Sectioning demonstrates multiple cysts ranging from 0.1 cm to 1.5 cm in greatest dimension. The largest cyst is hemorrhagic and collapsed. The inner lining of each cyst is smooth and uniform. The surface of the fallopian tube is red and glistening. Sectioning demonstrates a pinpoint lumen. Manager Business Management sections are submitted in blocks A1 through A3. MMC/TMZ 07.18.2009 03:54 pm Microscopic: The slides are labeled [id number] and Osorio Faulkner. Histologic sections of the left ovary reveal a hemorrhagic corpus luteum cyst, several follicle cysts, a corpus albicans, and scattered benign epithelial inclusion glands. There is organizing blood clot adherent to the outer ovarian surface. The corresponding fallopian tube is unremarkable, except for congestion of the mesosalpinx. GL/PHC 07.22.2009 08:05 am Staging Form: No. ELECTRONIC SIGNATURE FOR HEENA SEGOVIA M.D.- 07/22/09 02:37 pm [facility] 07/18/2009 1:30 PM CDT Alejandro Mejia MD PATHOLOGY/CYTOLOGY ORDERABLES Final Result [facility] CLIA# [id number] [address] [place] [address] * POC , URINE (07/18/2009 9:00 AM CDT) CLIA LICENSE [id number] [facility] , URINE POC Negative Negative [facility] Urine specimen (specimen) 07/18/2009 9:00 AM CDT 07/18/2009 9:00 AM CDT us Alejandro Mejia MD POINT OF CARE TESTING Final Re sult [facility] CLIA# [id number] [address] [place] [address] documented in this encounter Visit Diagnoses Diagnosis Other and unspecified ovarian cyst documented in this encounter Care Teams Museum Informatics Specialist Relationship Specialty Start Date End Date Ok Lujan MD [address] [place] [address] PCP - General Family Practice 11/13/13 documented as of this encounter
--- OUTSIDE RECORDS SUMMARY | 2025-06-10 15:53 | XMS_ITS | Encounter Summary ---
Author Organization [facility] Address [address] [facility] Attn: [place] [address] Care Team Providers Care It Communications Specialist Name Role Phone Ok Lujan MD Primary Care Provider [phone]- [phone] Encounter Details Date Type Department Care Team (Late st Contact Info) Description 10/13/1996 Outpatient Historical Conversion, [place] [address] [place] [address] Social History Tobacco Use Types Packs/Day Years Used Date Smoking Tobacco: Never Assessed Comments Unknown Sex and Gender Information Value Date Recorded Sex Assigned at Not on file 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
[2025-06-10 16:05] VITALS: BP 142/76; PULSE 57; RESP 17; TEMP 36.4; O2SAT 100
[2025-06-10 17:00] VITALS: PULSE 65
[2025-06-10 17:05] VITALS: BP 149/92; PULSE 59; RESP 11; O2SAT 100
--- NOTE | 2025-06-10 17:16 | ED_ITS ---
HPI - General Adult General Chief complaint: Unspecified Stated complaint: heat exhaustion Time Seen by Provider: 06/10/25 17:04 History of Present Illness HPI narrative: Patient is a 54-year-old female who presents ER with concerns for heat exhaustion. She has been outside mowing lawns and doing landscaping over last couple of days. Today she became very lightheaded and nauseous. She has had vomiting. She has being getting an spasms and cramping and muscles of the arms and legs. She has tried hydrating which has been vomiting and unsuccessful. A focal weakness. No slurred speech. No chest pain or chest pressure. Dizziness occurs when she goes from sitting to standing out with turning of the head. Related Data Home Medications ?Medication ?Instructions ?Recorded ?Confirmed ?Last Taken ?Type calcium polycarbophil 625 mg 1,250 mg PO DAILY 04/30/20 05/16/25 12/30/23 History tablet (FiberCon) fluticasone propionate 50 1 spray intranasal BID 04/30/20 05/16/25 12/30/23 History mcg/actuation nasal spray,suspension (Allergy Relief (fluticasone)) loratadine 10 mg tablet (Claritin) 10 mg PO DAILY 04/30/20 05/16/25 12/30/23 History cholecalciferol (vitamin D3) 50 50 mcg PO DAILY 10/15/20 05/16/25 12/30/23 History mcg (2,000 unit) capsule celecoxib 200 mg capsule (Celebrex) 200 mg PO BID PRN 09/12/24 05/16/25 Unknown History escitalopram oxalate 10 mg tablet 5 mg PO DAILY 09/12/24 05/16/25 Unknown History (Lexapro) Allergies Allergy/AdvReac Type Severity Reaction Status Date / Time animal dander Allergy Unknown Sneezing Verified 05/16/25 12:56 Sulfa (Sulfonamide Allergy Unknown Swelling Verified 05/16/25 12:56 Antibiotics) sulfamethizole Allergy Unknown angioedema Verified 05/16/25 12:56 Review of Systems 2 Review of Systems: All systems reviewed & are unremarkable except as noted in HPI and below Constitutional: Constitutional: Reports no additional constitutional complaints Cardiovascular: Cardiovascular: Reports no additional cardiovascular complaints Respiratory: Respiratory: Reports no additional respiratory complaints Musculoskeletal: Musculoskeletal: Reports no additional musculoskeletal complaints Neurologic: Reports system reviewed and no additional complaints, except as documented PMFSH Past Medical History Medical History Lobar pneumonia Asthma attack Sleep disturbance Surgical History Surgical History History of removal of ovarian cyst Family History Family History Father Family history of thyroid disease, Onset Age: 66 Mother Depression, Onset Age: 64 Family history of seizure disorder Grandparent Hypertension Family history of elevated blood lipids Family history of cardiovascular disease Cerebrovascular accident Family history of malignant neoplasm Social History Social History Smoking status: Never smoker Alcohol intake: current Alcohol use details: rare Substance use: never Substance use type: does not use Lack of Transportation: No Lack of Food: Never True Current Housing: I Have Housing Concerned About Future Housing: No Difficulty Paying Gas/Electric Bills: No Difficulty Paying for Meds: No Currently Unemployed: No Education: Master's Degree or Higher Difficulty w/ Childcare or Family Care: No Living arrangements: with family Spiritual care concerns: No Exam 2 Narrative: GENERAL: Well-appearing, well-nourished, and in no acute distress. HEAD: Normocephalic, atraumatic. ENT: Mucous membranes moist. TMs normal bilaterally hair canals free of cerumen. CHEST: Clear to auscultation. No respiratory distress. HEART: Regular rate and rhythm. Normal peripheral pulses. ABDOMEN: Soft, nontender, nondistended. EXTREMITIES: Normal range of motion. No edema. SKIN: Warm, dry, no rash. NEURO: Alert and oriented x3. PSYCH: Normal mood and affect. Course Course Emergency Course: The patient received Zofran but continues to have nausea. She is developing headache. Reports history of migraine. Patient given with Reglan/Benadryl/Toradol. Symptoms resolved. Appropriate for discharge home. Also received IV fluid and oral potassium. Vital Signs Vital signs: Vital Signs Temperature 97.6 F 06/10/25 16:05 Pulse Rate 57 L 06/10/25 16:05 Respiratory Rate 17 06/10/25 16:05 Blood Pressure 142/76 H 06/10/25 16:05 Pulse Oximetry 100 06/10/25 16:05 Temperature 97.6 F 06/10/25 16:05 Pulse Rate 59 L 06/10/25 17:05 Respiratory Rate 11 L 06/10/25 17:05 Blood Pressure 149/92 H 06/10/25 17:05 Pulse Oximetry 100 06/10/25 17:05 Oxygen Delivery Room Air 06/10/25 17:05 Medical Decision Making Vital Signs Vital Signs: Vital Signs Temperature 97.6 F 06/10/25 16:05 Pulse Rate 57 L 06/10/25 16:05 Respiratory Rate 17 06/10/25 16:05 Blood Pressure 142/76 H 06/10/25 16:05 Pulse Oximetry 100 06/10/25 16:05 Temperature 97.6 F 06/10/25 16:05 Pulse Rate 59 L 06/10/25 17:05 Respiratory Rate 11 L 06/10/25 17:05 Blood Pressure 149/92 H 06/10/25 17:05 Pulse Oximetry 100 06/10/25 17:05 Oxygen Delivery Room Air 06/10/25 17:05 Lab Data 06/10/25 17:16 06/10/25 17:16 Labs: Lab Results 06/10/25 Range/Units 17:16 WBC 9.2 (4.5-10.0) K/mm3 RBC 5.05 (4.2-5.4) M/mm3 Hgb 14.1 (12.0-15.0) g/dL Hct 43.4 (37.0-47.0) % MCV 85.9 (80-100) fl MCH 27.9 (26-34) pg MCHC 32.5 (32-36) g/dl RDW 13.5 (11.5-14.5) % Plt Count 205 (150-375) k/mm3 MPV 10.5 H (7.4-10.4) fl Immature Gran % (Auto) 0.4 (0-0.5) % Neut % (Auto) 77.0 H (45.5-73.1) % Lymph % (Auto) 16.8 L (18.3-44.2) % [place] % (Auto) 5.2 (2.6-8.5) % Eos % (Auto) 0.2 (0-4.4) % Baso % (Auto) 0.4 (0.2-1.2) % Lymph # (Auto) 1.55 (0.9-3.2) K/mm3 [place] # (Auto) 0.5 (0.1-0.6) K/mm3 Eos # (Auto) 0.0 (0-0.3) K/mm3 Baso # (Auto) 0.0 (0.0-0.1) K/mm3 Abs Immat Gran (auto) 0.04 H (0.00-0.031) K/mm3 Absolute Neuts (auto) 7.1 H (1.3-6.7) K/mm3 Absolute Nucleated RBC 0.000 (0.0-0.012) K/mm3 Nucleated RBC % 0.0 (0.0-0.2) % Sodium 131 L (137-145) mmol/L Potassium 3.3 L (3.4-5.0) mmol/L Chloride 96 L (98-107) mmol/L Carbon Dioxide 24 (22-30) mmol/L Anion Gap 11 (4-12) mmol/L BUN 16 (7-17) mg/dL Creatinine 0.76 (0.7-1.0) mg/dL Estim Creat Clear Calc 76 ml/min Estimated GFR > 60 (59 - ) Glucose 129 H (65-110) mg/dL Calcium 9.1 (8.4-10.2) mg/dL Magnesium 1.9 (1.6-2.3) mg/dL Total Bilirubin 0.9 (0.2-1.3) mg/dL AST 39 H (14-36) U/L ALT 28 (6-35) U/L Alkaline Phosphatase 95 (38-126) U/L Total Protein 8.3 H (6.3-8.2) g/dL Albumin 4.8 (3.5-5.1) g/dL Discharge Plan Discharge Clinical Impression: Vomiting Migraine headache Qualifiers: Migraine type: unspecified Status migrainosus presence: without status migrainosus Intractability: not intractable Qualified Code(s): G43.909 - Migraine, unspecified, not intractable, without status migrainosus Patient Disposition: Home Condition: Stable Instructions: Migraine Headache (ED) Additional Instructions: Try to stay well hydrated at home. Please return to the emergency department if you develop worsening of your headache or a new headache which is severe, associated with vision changes, associated with neck stiffness or fever, or if it is different from any other headache that you have had before. Return to the emergency department if you develop numbness, weakness or tingling or problems with coordination, or if you develop severe nausea and vomiting and are unable to keep down fluids at home. Patient Language: Greenlandic Prescriptions: No Action loratadine [Claritin] 10 mg tablet 10 mg PO DAILY fluticasone propionate [Allergy Relief (fluticasone)] 50 mcg/actuation spray,suspension 1 spray NASAL BID Rx Instructions: administer into each nostril calcium polycarbophil [FiberCon] 625 mg tablet 1,250 mg PO DAILY cholecalciferol (vitamin D3) 50 mcg (2,000 unit) capsule 50 mcg PO DAILY fluticasone furoate-vilanterol [Breo Ellipta] 200-25 mcg/dose blister with device 1 inh inhalation DAILY Qty: 180 3RF buspirone 7.5 mg tablet 7.5 mg PO DAILY PRN (Reason: stress) Qty: 90 1RF celecoxib [Celebrex] 200 mg capsule 200 mg PO BID PRN Patient Comments: patient takes on a prn basis Rx Instructions: Says takes as needed. escitalopram oxalate [Lexapro] 10 mg tablet 5 mg PO DAILY albuterol sulfate [ProAir HFA] 90 mcg/actuation HFA aerosol inhaler 2 puff inhalation Q4H PRN (Reason: bronchospasm) Qty: 8.5 5RF albuterol sulfate 2.5 mg/0.5 mL solution for nebulization 2.5 mg inhalation Q20M PRN (Reason: bronchospasm) Qty: 30 5RF Rx Instructions: for up to 3 doses hydrochlorothiazide 12.5 mg tablet 6.25 mg PO DAILY Qty: 90 3RF lisinopril 20 mg tablet See Rx Instructions .ROUTE .COMPLEX Qty: 90 1RF Dose Instruction: TAKE ONE TABLET BY MOUTH DAILY Rx Instructions: TAKE ONE TABLET BY MOUTH DAILY omeprazole 40 mg capsule,delayed release(DR/EC) 40 mg PO DAILY Qty: 90 1RF eletriptan 20 mg tablet See Rx Instructions PO .COMPLEX Qty: 4 5RF Rx Instructions: take 1 tab at onset of headache; if no relief may repeat 1 tab after at least 2 hrs; max = 4 tabs/24 hr PO Follow-up/Referrals: Dl Hernandez MD [Primary Care Provider] -
[2025-06-10] MEDS: ONDANSETRON INJ 4 MG/2 ML VIAL IV PUSH (17:19)
[2025-06-10] MEDS: SODIUM CHLORIDE 0.9% IV 1,000 ML 999 ML IV CONT (17:19)
[2025-06-10 17:24] LABS: Hematocrit 43.4 % (37.0-47.0); Hemoglobin 14.1 g/dL (12.0-15.0); Immature Granulocyte Percent A 0.4 % (0-0.5); Lymphocytes Absolute Auto 1.55 K/mm3 (0.9-3.2); Mean Corpuscular HGB Conc 32.5 g/dl (32-36); Mean Corpuscular Hemoglobin 27.9 pg (26-34); Mean Corpuscular Volume 85.9 fl (80-100); Nucleated Red Blood Cells Absolute Auto 0.000 K/mm3 (0.0-0.012); Nucleated Red Blood Cells Perc 0.0 % (0.0-0.2); Platelet Count Result 205 k/mm3 (150-375); Red Blood Count 5.05 M/mm3 (4.2-5.4); White Blood Count 9.2 K/mm3 (4.5-10.0)
[2025-06-10 17:33] LABS: Alanine Aminotransferase 28 U/L (6-35); Albumin Level 4.8 g/dL (3.5-5.1); Alkaline Phosphatase 95 U/L (38-126); Anion Gap 11 mmol/L (4-12); Aspartate Amino Transferase 39 U/L (14-36); Bilirubin,Total 0.9 mg/dL (0.2-1.3); Blood Urea Nitrogen 16 mg/dL (7-17); Calcium 9.1 mg/dL (8.4-10.2); Carbon Dioxide 24 mmol/L (22-30); Chloride 96 mmol/L (98-107); Estimated CRCL calculation 76 ml/min; Estimated Glomerular Filt Rate > 60; Glucose 129 mg/dL (65-110); Magnesium 1.9 mg/dL (1.6-2.3); Potassium 3.3 mmol/L (3.4-5.0); Sodium 131 mmol/L (137-145); Total Protein 8.3 g/dL (6.3-8.2)
--- OUTSIDE RECORDS SUMMARY | 2025-06-10 17:35 | XMS_ITS | Encounter Summary ---
Author Organization [facility] Address 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 Gender Identity Not on file Sexual Orientation Not on file documented as of this encounter Plan of Treatment Not on file documented as of this encounter Procedures Procedure Name Priority Date/Time Associated Diagnosis Comments PATHOLOGY Routine 07/18/2009 1:30 PM CDT POC , URINE Routine 07/18/2009 9:00 AM CDT documented in this encounter Results * PATHOLOGY (07/18/2009 1:30 PM CDT) FINAL REPORT [facility] [address] [place], [place] [address] Patient: OSORIO FAULKNER Amada : 1970 Procedure Date: 07/18/2009 Accession Date: 07/18/2009 Case No: [id number] Ordering Dr: ALEJANDRO MEJIA Case type SW is performed by [facility], [place], [place]; all other case types are performed by [facility], [place], [place] SURGICAL PATHOLOGY & NON-GYNECOLOGIC CYTOPATHOLOGY REPORT [...] and glistening. Sectioning demonstrates a pinpoint lumen. Director Mba sections are submitted in blocks A1 through A3. MMC/TMZ 07.18.2009 03:54 pm Microscopic: The slides are labeled [id number] and Osorio Faulkner. Histologic sections of the [...] FOR HEENA SEGOVIA M.D.- 07/22/09 02:37 pm [facility] 07/18/2009 1:30 PM CDT Alejandro Mejia MD PATHOLOGY/CYTOLOGY ORDERABLES Final Result [facility] CLIA# [id number] [address] [place] [address] * POC , URINE (07/18/2009 9:00 AM CDT) CLIA LICENSE [id number] [facility] , URINE POC Negative Negative [facility] Urine specimen (specimen) 07/18/2009 9:00 AM CDT 07/18/2009 9:00 AM CDT us Alejandro Mejia MD POINT OF CARE TESTING Final Re sult [facility] CLIA# [id number] [address] [place] [address] documented in this encounter Visit Diagnoses Diagnosis Other and unspecified ovarian cyst documented in this encounter Care Teams Psychometric Examiner Relationship Specialty Start Date End Date Ok Lujan MD [address] [place] [address] PCP - General Family Practice 11/13/13 documented as of this encounter
--- OUTSIDE RECORDS SUMMARY | 2025-06-10 17:35 | XMS_ITS | Clinical Summary ---
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
--- OUTSIDE RECORDS SUMMARY | 2025-06-10 17:35 | XMS_ITS | Encounter Summary ---
Author Organization [facility] Address [address] Attn: [place] [address] Care Team Providers Care Edge Cutter Name Role Phone Ok Lujan MD Primary Care Provider +1- [phone] Encounter Details Date Type Department Care Team (Late st Contact Info) Description 10/13/1996 Outpatient Historical Conversion, [place] [address] [place] [address] Social History Tobacco Use Types Packs/Day Years Used Date Smoking Tobacco: Never Assessed Comments Unknown Sex and Gender Information Value Date Recorded Sex Assigned at Not on file 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
[2025-06-10] MEDS: METOCLOPRAMIDE HCL INJ 10 MG/2 ML VIAL IV PUSH (17:59)
[2025-06-10] MEDS: KETOROLAC 30 MG/ML VIAL (*BKC) IV PUSH (17:59)
[2025-06-10] MEDS: POTASSIUM CHLORIDE 20 MEQ ER TABLET PO (18:01)
[2025-06-10 19:16] VITALS: BP 116/77; PULSE 63; RESP 12; O2SAT 99
== END 2025-06-10 19:18 | disposition home or self-care (01) ==
PROVIDERS: Emergency Provider Emergency Medicine; PCP Family Medicine
DX: G43.909 Migraine, unspecified, not intractable, without status migrainosus (principal); R11.10 Vomiting, unspecified
CPT/HCPCS: 36415; 80053; 83735; 85025; 96361; 96374; 96375; 99284; A9270; J1200; J1885; J2405; J2765; J7030

== ENCOUNTER 2025-07-25 08:04 | Outpatient (CLI) | payer OTHER, SELFPAY ==
--- OUTSIDE RECORDS SUMMARY | 2025-07-25 08:09 | XMS_ITS | Clinical Summary ---
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
--- OUTSIDE RECORDS SUMMARY | 2025-07-25 08:09 | XMS_ITS | Encounter Summary ---
Author Organization [facility] Address 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 Sectioning demonstrates a pinpoint lumen. Application Support Developer sections are submitted in blocks A1 through A3. MMC/TMZ 07.18.2009 03:54 pm Microscopic: The slides are labeled [id number] and Osorio Faulkner. Histologic sections of the [...] FOR HEENA SEGOVIA M.D.- 07/22/09 02:37 pm [facility] 07/18/2009 1:30 PM CDT Alejandro Mejia MD PATHOLOGY/CYTOLOGY ORDERABLES Final Result [facility] CLIA# [id number] [address] [place] [address] * POC , URINE (07/18/2009 9:00 AM CDT) CLIA LICENSE [id number] [facility] , URINE POC Negative Negative [facility] Urine specimen (specimen) 07/18/2009 9:00 AM CDT 07/18/2009 9:00 AM CDT us Alejandro Mejia MD POINT OF CARE TESTING Final Re sult [facility] CLIA# [id number] [address] [place] [address] documented in this encounter Visit Diagnoses Diagnosis Other and unspecified ovarian cyst documented in this encounter Care Teams Supervisor Road Administrator Relationship Specialty Start Date End Date Ok Lujan MD [address] [place] [address] PCP - General Family Practice 11/13/13 documented as of this encounter
--- OUTSIDE RECORDS SUMMARY | 2025-07-25 08:09 | XMS_ITS | Encounter Summary ---
Author Organization [facility] Address [address] [facility] Attn: [place] [address] Care Team Providers Care Special Certificate Dictator Name Role Phone Ok Lujan MD Primary Care Provider +1- [phone] Encounter Details Date Type Department Care Team (Late st Contact Info) Description 10/13/1996 Outpatient Historical Conversion, [place] [address] [place] [address] Social History Tobacco Use Types Packs/Day Years Used Date Smoking Tobacco: Never Assessed Comments Unknown Sex and Gender Information Value Date Recorded Sex Assigned at Not on file 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
[2025-07-25 08:45] LABS: Alanine Aminotransferase 22 U/L (6-35); Albumin Level 4.4 g/dL (3.5-5.1); Alkaline Phosphatase 80 U/L (38-126); Anion Gap 7 mmol/L (4-12); Aspartate Amino Transferase 30 U/L (14-36); Bilirubin,Total 0.6 mg/dL (0.2-1.3); Blood Urea Nitrogen 17 mg/dL (7-17); Calcium 9.3 mg/dL (8.4-10.2); Carbon Dioxide 29 mmol/L (22-30); Chloride 104 mmol/L (98-107); Estimated Glomerular Filt Rate > 60; Glucose 97 mg/dL (65-110); Potassium 4.1 mmol/L (3.4-5.0); Sodium 140 mmol/L (137-145); Total Protein 7.7 g/dL (6.3-8.2)
== END 2025-07-25 08:05 | disposition home or self-care (01) ==
LOC: ANHLAB 08:06
PROVIDERS: PCP Family Medicine; Visit Provider Family Medicine
DX: E87.1 Hypo-osmolality and hyponatremia (principal); E87.6 Hypokalemia
CPT/HCPCS: 36415; 80053

== ENCOUNTER 2025-08-23 12:21 | Outpatient (CLI) | payer OTHER, SELFPAY | END 2025-08-23 12:22 | disposition home or self-care (01) | LOC: ANHLAB 12:22 | PROVIDERS: PCP Family Medicine; Visit Provider Family Medicine | DX: Z02.1 Encounter for pre-employment examination (principal) | CPT/HCPCS: 86480 ==